=== PATIENT | female | born 1965 | race Hispanic/Latino ===

== ENCOUNTER 2017-11-20 09:30 | Day surgery (SDC) | payer OTHER ==
[~2017-11-20] VITALS: Ht 149.9 cm; Wt 85.7 kg
[~2017-11-20 09:30] MED LIST: SODIUM CHLORIDE 0.9% 1000ML 1,000 ML IV ONE
[2017-11-20 10:01] LABS: ALBUMIN 3.6 g/dL (3.5-5.0); BILIRUBIN,DIRECT 0.1 mg/dL (0.0-0.3); BILIRUBIN,TOTAL 0.8 mg/dL (0.2-1.0); TOTAL PROTEIN, SERUM 7.5 g/dL (6.0-8.3)
[2017-11-20 10:06] VITALS: BP 144/75
[2017-11-20] MEDS ORDERED: LISI1TAB11 PO (10:36)
[2017-11-20] MEDS ORDERED: EXCEES PO (10:36)
[2017-11-20] MEDS ORDERED: MULT-1203 PO (10:36)
[2017-11-20] MEDS ORDERED: PANT40TA25 PO (10:36)
[2017-11-20] MEDS ORDERED: PROPOFOL 10 MG/ML 20ML VIAL IV ONE ×2 (11:04)
[2017-11-20 11:17] VITALS: BP 99/52
== END 2017-11-20 12:15 ==
LOC: DAH 09:30
PROVIDERS: ATTEND Internal Medicine Gastroenterology
DX: K25.9 Gastric ulcer, unspecified as acute or chronic, without hemorrhage or perforation (principal); I10 Essential (primary) hypertension; Z82.49 Family history of ischemic heart disease and other diseases of the circulatory system; Z90.710 Acquired absence of both cervix and uterus; Z68.37 Body mass index [BMI] 37.0-37.9, adult; Z79.899 Other long term (current) drug therapy
CPT/HCPCS: 36415; 43239; 80076; 83690; 88305; 88312; 88342; A4606; J2704 ×2; J7030

== ENCOUNTER 2019-10-23 16:15 | Emergency (ER) | payer OTHER ==
[~2019-10-23 16:15] MED LIST changes: +LISI1TAB28 PO; +MULT-1203 PO; -SODIUM CHLORIDE 0.9% 1000ML 1,000 ML IV ONE
[2019-10-23] MEDS ORDERED: KETOROLAC TROMETHAMINE 60 MG/2 ML VIAL ONE (17:04)
[2019-10-23] MEDS ORDERED: DiphenhydrAMINE HCL 50 MG/ML VIAL ONE (17:04)
[2019-10-23] MEDS ORDERED: ONDANSETRON ODT 4 MG TAB ONE (17:04)
[2019-10-23 17:26] LABS: BASOPHILS % (AUTO) 0.6 % (0.0-5.0); EOSINOPHILS % (AUTO) 1.3 % (0.0-8.0); HEMATOCRIT 41.6 % (36-48); LYMPHOCYTES % (AUTO) 33.8 % (21.0-51.0); MEAN CORPUSCULAR HGB CONC 33.7 g/dL (32.0-36.0); MONOCYTES % (AUTO) 7.7 % (3.0-13.0); NEUTROPHILS % (AUTO) 56.3 % (40.0-77.0); PLATELET COUNT (AUTO) 168 K/uL (130-400); RED BLOOD CELL COUNT(AUTO) 4.38 MIL/uL (4.00-5.50); WHITE BLOOD COUNT (AUTO) 7.1 K/uL (4.8-10.8)
[2019-10-23 17:38] LABS: POTASSIUM 3.7 mmol/L (3.5-5.1)
[2019-10-23 17:51] LABS: APPEARANCE,URINE CLOUDY (CLEAR); BILIRUBIN,URINE NEGATIVE (NEGATIVE); COLOR,URINE YELLOW (YELLOW); GLUCOSE, URINE (UA) NEGATIVE (NEGATIVE); KETONES,URINE NEGATIVE (NEGATIVE); LEUKOCYTE ESTERASE ,URINE SMALL (NEGATIVE); NITRATE,URINE NEGATIVE (NEGATIVE); OCCULT BLOOD,URINE NEGATIVE (NEGATIVE); PH,URINE >=9.0 (5.0-8.0); PROTEIN,URINE 30 mg/dL (NEGATIVE); UROBILINOGEN,URINE 0.2 mg/dL (0.2-1.0)
[2019-10-23 18:54] LABS: BACTERIA,URINE Many /HPF (None Seen); MUCUS,URINE Few LPF (None Seen); SQUAMOUS EPITHELIAL CELL,UR Moderate /HPF (0-2)
== END 2019-10-23 18:29 | disposition home or self-care (01) ==
LOC: EDH 16:15
DX: R51 Headache (principal); I10 Essential (primary) hypertension; N39.0 Urinary tract infection, site not specified; Z98.890 Other specified postprocedural states; Z90.49 Acquired absence of other specified parts of digestive tract; Z90.710 Acquired absence of both cervix and uterus
CPT/HCPCS: 36415; 80048; 81001; 85025; 87804 ×2; 96372 ×2; 99284; J1200; J1885

== ENCOUNTER 2021-04-30 23:33 | Emergency (ER) | payer OTHER, SELFPAY ==
[~2021-04-30] VITALS: Ht 152.4 cm; Wt 88.5 kg
[~2021-04-30 23:33] MED LIST changes: -LISI1TAB28 PO; +LISI1TAB51 PO
[2021-05-01 04:57] VITALS: BP 173/85
[2021-05-01] MEDS ORDERED: BENZ-17 PO (05:00)
[2021-05-01] MEDS ORDERED: ONDA4TAB10 PO (05:00)
[2021-05-01] MEDS ORDERED: ALBU8.5H8 IH (05:00)
== END 2021-05-01 05:07 | disposition home or self-care (01) ==
LOC: EDH 23:33
DX: B34.9 Viral infection, unspecified (principal); R05 Cough; I10 Essential (primary) hypertension; Z20.822 Contact with and (suspected) exposure to COVID-19; Z98.890 Other specified postprocedural states; Z79.899 Other long term (current) drug therapy
CPT/HCPCS: 87635; 87804 ×2; 99283; C9803

== ENCOUNTER 2021-08-29 16:45 | Emergency (ER) | payer OTHER ==
[~2021-08-29] VITALS: Ht 152.4 cm; Wt 90.7 kg
[~2021-08-29 16:45] MED LIST changes: +ALBU8.5H8 IH; +BENZ-17 PO; +ONDA4TAB10 PO
[2021-08-29] MEDS ORDERED: IPRATROPIUM/ALBUTEROL SULFATE 3 ML SOLUTION IH STA (17:03)
[2021-08-29] MEDS ORDERED: SOLU-MEDROL 125MG VIAL IVP ONE (17:30)
[2021-08-29] MEDS ORDERED: IPRATROPIUM/ALBUTEROL SULFATE 3 ML SOLUTION IH ONE (18:00)
[2021-08-29] MEDS ORDERED: APAP/CODEINE 120/12MG 5ML PO ONE (18:00)
[2021-08-29] MEDS ORDERED: APAP/CODEINE 120/12MG 5ML ONE (18:11)
[2021-08-29] MEDS ORDERED: AZIT250T PO (19:05)
[2021-08-29] MEDS ORDERED: PRED20TA3 PO (19:05)
[2021-08-29] MEDS ORDERED: D-ME118S47 PO (19:05)
[2021-08-29 19:06] VITALS: BP 147/69
== END 2021-08-29 19:21 | disposition home or self-care (01) ==
LOC: EDH 16:45
DX: J40 Bronchitis, not specified as acute or chronic (principal); Z20.822 Contact with and (suspected) exposure to COVID-19; I10 Essential (primary) hypertension; Z79.52 Long term (current) use of systemic steroids; Z79.899 Other long term (current) drug therapy
CPT/HCPCS: 71045; 87635; 87804 ×2; 94640 ×2; 96374; 99285; C9803; J2930

== ENCOUNTER 2024-05-09 15:32 | Emergency (ER) | payer OTHER ==
[~2024-05-09] VITALS: Ht 152.4 cm; Wt 90.7 kg
[~2024-05-09 15:32] MED LIST changes: +AZIT250T PO; +BROM118S48 PO; +ONDA-243 PO; -ONDA4TAB10 PO; +PRED20TA3 PO
[2024-05-09 16:36] LABS: BASOPHILS # (AUTO) 0.02 K/uL (0.00-0.20); BASOPHILS % (AUTO) 0.3 % (0.0-5.0); EOSINOPHILS # (AUTO) 0.16 K/uL (0.00-0.70); EOSINOPHILS % (AUTO) 2.4 % (0.0-8.0); HEMATOCRIT 43.8 % (36-48); IMMATURE GRANULOCYTE ABSOLUTE 0.02 K/uL (0-1); LYMPHOCYTES # (AUTO) 2.3 K/uL (1.0-4.8); LYMPHOCYTES % (AUTO) 35.5 % (21.0-51.0); MEAN CORPUSCULAR HEMOGLOBIN 31.9 pg (27.0-33.0); MEAN CORPUSCULAR HGB CONC 33.3 g/dL (32.0-36.0); MEAN CORPUSCULAR VOLUME 95.6 fL (79-99); MONOCYTES # (AUTO) 0.5 K/uL (0.1-1.0); MONOCYTES % (AUTO) 8.2 % (3.0-13.0); NEUTROPHILS # (AUTO) 3.5 K/uL (1.8-7.7); NEUTROPHILS % (AUTO) 53.3 % (40.0-77.0); PLATELET COUNT (AUTO) 200 K/uL (130-400); RED BLOOD CELL COUNT(AUTO) 4.58 MIL/uL (4.00-5.50); WHITE BLOOD COUNT (AUTO) 6.6 K/uL (4.8-10.8)
[2024-05-09 16:53] LABS: CREATININE 0.6 mg/dL (0.5-1.0); POTASSIUM 4.1 mmol/L (3.5-5.1)
[2024-05-09] MEDS: KETOROLAC 30MG VIAL (30MG/ML) IM ONE (18:38)
[2024-05-09] MEDS: ORPHENADRINE 60MG/2ML IM ONE (18:39)
[2024-05-09] MEDS ORDERED: CYCL-309 PO (18:51)
[2024-05-09] MEDS ORDERED: KETO10TA2 PO (18:51)
[2024-05-09 18:53] VITALS: BP 148/84; PULSE 74; RESP 20; O2SAT 99
== END 2024-05-09 19:09 | disposition home or self-care (01) ==
LOC: EDH 15:32
DX: R07.89 Other chest pain (principal); I10 Essential (primary) hypertension; E78.00 Pure hypercholesterolemia, unspecified; Z79.899 Other long term (current) drug therapy; Z90.49 Acquired absence of other specified parts of digestive tract; Z90.710 Acquired absence of both cervix and uterus; Z98.890 Other specified postprocedural states
CPT/HCPCS: 99285; 71045; 84484; 80048; 85025; 36415; 96372 ×2; 93005; J1885; J2360

== ENCOUNTER 2024-12-28 14:06 | Emergency (ER) | payer BC, OTHER ==
[~2024-12-28] VITALS: Ht 152.4 cm; Wt 86.2 kg
[~2024-12-28 14:06] MED LIST changes: +CYCL-309 PO; +KETO10TA2 PO
--- NOTE | 2024-12-28 14:18 | ERN ---
ED Note History of Present Illness Stated Complaint: BACK PAIN Chief Complaint: Back Pain-No Injury Time Seen by MD: 14:11 Dictation: PATIENT IS A 59-YEAR-OLD FEMALE COMING IN TODAY WITH COMPLAINTS OF ONSET OF LOWER LUMBAR PAIN NONRADIATING FOR THE LAST THREE DAYS. SHE DENIES ANY HEAVY LIFTING TWISTING. STATES SHE HAS A HISTORY OF A PRIOR HERNIATED DISC AND HAD SURGERY DONE BY A SURGEON IN [facility] THREE YEARS AGO. NO CHANGE IN BOWEL OR BLADDER FUNCTION SHE HAS BEEN TAKEN TYLENOL ARTHRITIS [id number] FOR PAIN. NO FEVER NO CHILLS NO URINARY SYMPTOMS Allergies: Coded Allergies: No Known Drug Allergies (Unverified Allergy, Unknown, 11/20/17) Home Meds Active Scripts Cyclobenzaprine HCl (Cyclobenzaprine HCl) 10 Mg Tablet, 10 MG PO DAILYDINNER for 5 Days, #5 TAB Prov:BRENNAN RIVERA 05/09/24 Ketorolac Tromethamine (Ketorolac Tromethamine) 10 Mg Tablet, 10 MG PO BID for 5 Days, #10 TAB Prov:BRENNAN RIVERA 05/09/24 D-Methorphan Hb/P-Epd HCl/Bpm (Bromfed Dm Cough Syrup) 118 Ml Syrup, 7.5 ML PO TID for cough for 5 Days, #80 ML Prov:NYA CAMPBELL NP 08/29/21 Prednisone (Prednisone) 20 Mg Tablet, 1 TAB PO DAILY for Bronchitis for 6 Days, #6 TAB 0 Refills TAKE 1 TAB BY MOUTH THREE TIMES PER DAY X3 DAYS, THEN TAKE 1 TAB BY MOUTH TWICE A DAY X2 DAYS, THEN TAKE 1 TAB BY MOUTH ONCE A DAY X1 DAY. Prov:NYA CAMPBELL NP 08/29/21 Azithromycin (Zithromax) 250 Mg Tablet, 250 MG PO DAILY for Bronchitis for 5 Days, #6 TAB Prov:NYA CAMPBELL NP 08/29/21 Ondansetron (Ondansetron Odt) 4 Mg Tab.rapdis, 4 MG PO Q6HPRN, #20 TAB 0 Refills Prov:REBECA CHRISTIE MD 05/01/21 Albuterol Sulfate (Proair Hfa) 8.5 Gm Hfa.aer.ad, 2 PUFF IH Q4HPRN, #1 INHALER 0 Refills Prov:REBECA CHRISTIE MD 05/01/21 Benzonatate (Tessalon Perle) 100 Mg Capsule, 100 MG PO TIDP, #15 CAP 0 Refills Prov:SHAHNAZREBECA MD 05/01/21 Reported Medications Multivitamin (Multi Vitamin Daily) 1 Each Tablet, 1 EACH PO DAILY, TAB 11/20/17 Lisinopril/Hydrochlorothiazide (Lisinopril-Hctz 20-12.5 mg Tab) 1 Each Tablet, 1 EACH PO DAILY, TAB 11/20/17 Past Medical History Past Medical History: High Cholesterol, Hypertension, Hyperthyroid Surgical History: Hysterectomy, Surgical History Other: LEFT FOOT Family History: Negative Social History: Lives with family History: Not Applicable RN Note Reviewed/Agreed w/PFSH: Yes Review of System Dictation CONSTITUTIONAL: NEGATIVE EXCEPT FOR HPI HEAD/FACE: NEGATIVE EXCEPT FOR HPI EENT: NEGATIVE EXCEPT FOR HPI RESPIRATORY: NEGATIVE EXCEPT FOR HPI GASTROINTESTINAL/ABDOMINAL: NEGATIVE EXCEPT FOR HPI GENITOURINARY: NEGATIVE EXCEPT FOR HPI MUSCULOSKELETAL: NEGATIVE EXCEPT FOR HPI DIFFUSE LUMBOSACRAL TENDERNESS INTEGUMENTARY: NEGATIVE EXCEPT FOR HPI NEUROLOGICAL/PSYCH: NEGATIVE EXCEPT FOR HPI HEMATOLOGIC/LYMPHATIC: NEGATIVE EXCEPT FOR HPI ALL SYSTEMS NEGATIVE, EXCEPT NOTED ABOVE. 13 POINT REVIEW OF SYSTEMS ASSESSED AND ALL NEGATIVE EXCEPT FOR ABOVE. Initial Vital Sign VS Vital Signs Date Time Temp Pulse Resp B/P (MAP) Pulse Ox O2 Delivery O2 Flow Rate FiO2 12/28/24 14:07 98.2 96 14 180/91 98 0 12/28/24 18:54 Room Air* 21 Physical Exam Dictation VITAL SIGNS REVIEWED GENERAL APPEARANCE: ALERT, ORIENTED X 3, MODERATE ACUTE DISTRESS, WELL DEVELOPED, NOURISHED. OBESE HEAD AND FACE: NON-TRAUMATIC. EYES: PERRL, PINK CONJUNCTIVAS, EYELID NO TRAUMA, ANTERIOR CHAMBER WITH ARCUS SENILIS. EARS: PINNAS INTACT AND NO SIGNS OF TRAUMA OR ERYTHEMA EAR CANALS CLEAR AND NO DISCHARGE TM NO ERYTHEMA NOSE: NO DISCHARGE, NO BLEEDING. OROPHARYNX: MOUTH NORMAL, TONGUE PINK, PHARYNX CLEAR,NO ERYTHEMA, TONSILS NO EXUDATES, NO ABSCESSES NOTED, MUCOUS MEMBRANE MOIST NECK: SUPPLE, NON-TENDER, NO THYROMEGALY, NO MASSES, NO JVD, NO BRUITS BREAST:DEFERRED CHEST:NO TENDERNESS, NO CREPITUS, NO PARADOXICAL MOVEMENT, NO RETRACTIONS LUNGS:CLEAR, WELL-VENTILATED, SYMMETRIC, NO RALES, NO WHEEZING, NO RHONCHI, NO STRIDOR, GOOD BREATH SOUNDS BILATERALLY HEART: REGULAR RATE, REGULAR RHYTHM, NO MURMUR, NO GALLOPS VASCULAR: NO PERIPHERAL EDEMA, ABDOMEN: SOFT, POSITIVE BOWEL SOUNDS, NONDISTENDED, NO GUARDING, NONTENDER, NO REBOUND, NO MASSES NO HEPATOMEGALY, NO SPLENOMEGALY, NO PATEL'S SIGN, NO HERNIAS. RECTAL: DEFERRED GENITAL: DEFERRED NEUROLOGICAL: NORMAL SPEECH, MOTOR FUNCTION INTACT, SENSORY FUNCTION INTACT MUSCULOSKELETAL: NECK NONTENDER, FULL RANGE OF MOTION, DIFFUSE LUMBOSACRAL TENDERNESS. NO MIDLINE SPINE PAIN OR STEP-OFFS. NEGATIVE STRAIGHT LEG RAISE BILATERALLY 10. EXTREMITIES: NONTENDER, FULL RANGE OF MOTION SKIN: COLOR PINK, DRY, NO TURGOR, NO RASH, NO LACERATIONS, NO ABRASIONS, NO CONTUSIONS. LYMPHATIC: DEFERRED Results (Laboratory/Radiology) Labs Reviewed?: Yes ED Course ED Course Orders Procedure Category Date Status Time Dexamethasone 4mg/Ml PHA 12/28/24 Complete 1ml Vial (Dexametha 14:30 Cyclobenzaprine Hcl PHA 12/28/24 Complete (Cyclobenzaprine Hcl 14:30 Ketorolac 60mg/2ml PHA 12/28/24 Complete (Toradol 60mg/2ml) 14:30 Hydrocodone/Apap PHA 12/28/24 Complete 5/325 ([place] 5/325mg) 19:30 Cyclobenzaprine Hcl PHA 12/28/24 Complete (Cyclobenzaprine Hcl 19:16 Ketorolac 60mg/2ml PHA 12/28/24 Complete (Toradol 60mg/2ml) 19:16 Dexamethasone 4mg/Ml PHA 12/28/24 Complete 1ml Vial (Dexametha 19:17 Current Medications Medications (Trade) Dose Ordered Sig/Tone Route PRN Reason Start Time Stop Time Status Last Admin Dose Admin Acetaminophen/ Hydrocodone Bitart (NORco 5/325MG) 1 tab ONCE ONCE PO 12/28/24 19:30 12/28/24 19:31 DC 12/28/24 19:20 Cyclobenzaprine HCl (Cyclobenzaprine HCl) 10 mg ONCE ONCE PO 12/28/24 14:30 12/28/24 14:31 DC 12/28/24 19:20 Cyclobenzaprine HCl (Cyclobenzaprine HCl) 10 mg STK-MED ONCE .ROUTE 12/28/24 19:16 12/28/24 19:17 DC Dexamethasone Sodium Phosphate (dexaMETHasone 4MG/ML 1ML VIAL) 4 mg STK-MED ONCE .ROUTE 12/28/24 19:17 12/28/24 19:17 DC Dexamethasone Sodium Phosphate (dexaMETHasone 4MG/ML 1ML VIAL) 8 mg ONCE ONCE IM 12/28/24 14:30 12/28/24 14:31 DC 12/28/24 19:21 Ketorolac Tromethamine (toRADol 60MG/ 2ML) 60 mg ONCE ONCE IM 12/28/24 14:30 12/28/24 14:31 DC 12/28/24 19:21 Ketorolac Tromethamine (toRADol 60MG/ 2ML) 60 mg STK-MED ONCE IM 12/28/24 19:16 12/28/24 19:17 DC Vital Signs Date Time Temp Pulse Resp B/P (MAP) Pulse Ox O2 Delivery O2 Flow Rate FiO2 12/28/24 18:54 98.2 96 19 180/91 98 Room Air* 0 21 12/28/24 14:07 98.2 96 14 180/91 98 0 1930/PATIENT STATES PAIN IS MARKEDLY IMPROVED AFTER TREATMENT. DISCHARGED HOME WITH THE HAS A DESIGNATED EMAIL MANAGER. TOLD TO SEE YOUR PRIMARY CARE DOCTOR MONDAY OR MONDAY FOR FOLLOW UP AND MANAGEMENT. Medical Decision Making MDM MEDICAL DISCHARGE MAKING BASED ON EMPIRIC TREATMENT FOR ACUTE LUMBAR PAIN. NO CHANGE IN BOWEL OR BLADDER FUNCTION NO SADDLE PARESTHESIA PATIENT HAS A HISTORY OF BACK PAIN WITH SURGERIES. DX & DISP Disposition: Discharge Departure Impression: Primary Impression: Acute exacerbation of chronic low back pain Additional Impression: Benign hypertension Condition: Stable Scripts Omeprazole (Omeprazole) 40 Mg Capsule.dr 1 CAP PO DAILY for 30 Days, #30 CAP 0 Refills Prov: AJAY JAIN NP 12/28/24 Prednisone (Prednisone) 20 Mg Tablet 1 TAB PO AD for 6 Days, #14 TAB 0 Refills TAKE 1 TAB BY MOUTH THREE TIMES PER DAY X3 DAYS, THEN TAKE 1 TAB BY MOUTH TWICE A DAY X2 DAYS, THEN TAKE 1 TAB BY MOUTH ONCE A DAY X1 DAY. TAKE WITH FOOD Prov: AJAY JAIN NP 12/28/24 Ibuprofen (Ibuprofen 800 mg Tab) 800 Mg Tab 800 MG PO Q8H PRN for fever or pain, #30 TAB 0 Refills Prov: AJAY JAIN NP 12/28/24 Cyclobenzaprine HCl (Cyclobenzaprine HCl) 10 Mg Tablet 1 TAB PO TID for muscle spasms for 10 Days, #30 TAB 0 Refills Prov: AJAY JAIN NP 12/28/24 Additional Instructions: FOLLOW-UP WITH PRIMARY CARE PROVIDER IN 1 TO 2 DAYS. TAKE MEDICATIONS DIRECTED HERE IN THE EMERGENCY ROOM. OKAY TO CONTINUE HOME MEDICATIONS UNLESS OTHERWISE DISCUSSED DURING YOUR VISIT IN THE EMERGENCY ROOM TODAY. RETURN TO YOUR NEAREST EMERGENCY ROOM IF SYMPTOMS WORSEN OR IF THERE IS NO IMPROVEMENT. CALL 911 IF YOU NEED IMMEDIATE ASSISTANCE. TAKE TYLENOL OR MOTRIN [id number] NEEDED AND IF NO CONTRAINDICATIONS ARE PRESENT. INCREASE ORAL HYDRATION. A WOUND CULTURE OR URINE CULTURE WAS ORDERED HERE IN THE EMERGENCY ROOM DEPARTMENT PLEASE FOLLOW-UP WITH PRIMARY CARE PROVIDER AND ADVISE THEM TO GET REPEAT PORTS FROM OUR FACILITY. IF YOU HAD ANY JUDITH WRAP/SPLINTS THAT WERE APPLIED HERE, PLEASE DO NOT REMOVE THEM UNTIL YOU SEE YOUR PRIMARY CARE OR SPECIALTY. TAKE IBUPROFEN AND FLEXERIL EVERY 8 HOURS WITH FOOD FOR THE NEXT TWO DAYS. TAKE PREDNISONE DIRECTED WITH FOOD UNTIL GONE. NO LIFTING GREATER THAN 10 LB AND SEE YOUR PRIMARY CARE DOCTOR FOR FOLLOW UP IN 1-2 DAYS FOR MANAGEMENT Referrals: NONE (PCP) Time of Disposition: 19:33 I have reviewed the case, and I agree with, Diagnosis and Plan AJAY JAIN NP Dec 28, 2024 14:18
[2024-12-28 18:54] VITALS: TEMP 98.3
[2024-12-28] MEDS: CYCLOBENZAPRINE HCL 10 MG TABLET ONE (19:20)
[2024-12-28] MEDS: HYDROcodone/APAP 5/325 1 TAB TABLET PO ONE (19:20)
[2024-12-28] MEDS: CYCLOBENZAPRINE HCL 10 MG TABLET PO ONE (19:20)
[2024-12-28] MEDS: dexaMETHasone SOD PHOSPHATE 4 MG/ML 1ML VIAL IM ONE (19:21)
[2024-12-28] MEDS: dexaMETHasone SOD PHOSPHATE 4 MG/ML 1ML VIAL ONE (19:21)
[2024-12-28] MEDS: ketOROlac 60 MG VIAL (30MG/ML) IM ONE ×2 (19:21)
[2024-12-28] MEDS ORDERED: PRED20TA3 PO (19:34)
[2024-12-28] MEDS ORDERED: IBUP-2077 PO (19:34)
[2024-12-28] MEDS ORDERED: CYCL-309 PO (19:34)
[2024-12-28] MEDS ORDERED: OMEP40CA21 PO (19:34)
[2024-12-28 19:57] VITALS: BP 168/83; PULSE 79; RESP 18; O2SAT 100
== END 2024-12-28 20:07 | disposition home or self-care (01) ==
LOC: EDH 14:06
DX: G89.29 Other chronic pain (principal); M54.50 Low back pain, unspecified; I10 Essential (primary) hypertension; E78.00 Pure hypercholesterolemia, unspecified; Z79.52 Long term (current) use of systemic steroids; Z79.899 Other long term (current) drug therapy; Z90.710 Acquired absence of both cervix and uterus
CPT/HCPCS: 99284; 96372 ×2; J1100; J1885

== ENCOUNTER 2025-06-17 17:05 | Inpatient (IN) | payer BC ==
[~2025-06-17] VITALS: Ht 152.4 cm; Wt 95.3 kg
[~2025-06-17 17:05] MED LIST changes: +IBUP-2077 PO; +OMEP40CA21 PO
--- NOTE | 2025-06-17 17:23 | ERN ---
General Chief Complaint: Chest Pain Stated Complaint: CP Time Seen by MD: 17:14 Source: patient History of Present Illness Initial Comments Patient is a 59-year-old female coming in complaining of chest pain. Patient states that the chest pain began earlier in the morning. Per patient she also has a history of asthma. She quantifies the pain at 5/10 when present. Allergies: Coded Allergies: No Known Drug Allergies (Unverified Allergy, Unknown, 11/20/17) Home Meds Active Scripts Omeprazole (Omeprazole) 40 Mg Capsule.dr, 1 CAP PO DAILY for 30 Days, #30 CAP 0 Refills Prov:AJAY JAIN NP 12/28/24 Prednisone (Prednisone) 20 Mg Tablet, 1 TAB PO AD for 6 Days, #14 TAB 0 Refills TAKE 1 TAB BY MOUTH THREE TIMES PER DAY X3 DAYS, THEN TAKE 1 TAB BY MOUTH TWICE A DAY X2 DAYS, THEN TAKE 1 TAB BY MOUTH ONCE A DAY X1 DAY. TAKE WITH FOOD Prov:AJAY JAIN NP 12/28/24 Ibuprofen (Ibuprofen 800 mg Tab) 800 Mg Tab, 800 MG PO Q8H PRN for fever or pain, #30 TAB 0 Refills Prov:AJAY JAIN NP 12/28/24 Cyclobenzaprine HCl (Cyclobenzaprine HCl) 10 Mg Tablet, 1 TAB PO TID for muscle spasms for 10 Days, #30 TAB 0 Refills Prov:AJAY JAIN NP 12/28/24 Cyclobenzaprine HCl (Cyclobenzaprine HCl) 10 Mg Tablet, 10 MG PO DAILYDINNER for 5 Days, #5 TAB Prov:BRENNAN RIVERA 05/09/24 Ketorolac Tromethamine (Ketorolac Tromethamine) 10 Mg Tablet, 10 MG PO BID for 5 Days, #10 TAB Prov:BRENNAN RIVERA 05/09/24 D-Methorphan Hb/P-Epd HCl/Bpm (Bromfed Dm Cough Syrup) 118 Ml Syrup, 7.5 ML PO TID for cough for 5 Days, #80 ML Prov:NYA CAMPBELL NP 08/29/21 Prednisone (Prednisone) 20 Mg Tablet, 1 TAB PO DAILY for Bronchitis for 6 Days, #6 TAB 0 Refills TAKE 1 TAB BY MOUTH THREE TIMES PER DAY X3 DAYS, THEN TAKE 1 TAB BY MOUTH TWICE A DAY X2 DAYS, THEN TAKE 1 TAB BY MOUTH ONCE A DAY X1 DAY. Prov:NYA CAMPBELL PHONE CIRCUIT OPERATOR 08/29/21 Azithromycin (Zithromax) 250 Mg Tablet, 250 MG PO DAILY for Bronchitis for 5 Days, #6 TAB Prov:NYA CAMPBELL NP 08/29/21 Ondansetron (Ondansetron Odt) 4 Mg Tab.rapdis, 4 MG PO Q6HPRN, #20 TAB 0 Refills Prov:REBECA CHRISTIE MD 05/01/21 Albuterol Sulfate (Proair Hfa) 8.5 Gm Hfa.aer.ad, 2 PUFF IH Q4HPRN, #1 INHALER 0 Refills Prov:REBECA CHRISTIE MD 05/01/21 Benzonatate (Tessalon Perle) 100 Mg Capsule, 100 MG PO TIDP, #15 CAP 0 Refills Prov:REBECA CHRISTIE MD 05/01/21 Reported Medications Multivitamin (Multi Vitamin Daily) 1 Each Tablet, 1 EACH PO DAILY, TAB 11/20/17 Lisinopril/Hydrochlorothiazide (Lisinopril-Hctz 20-12.5 mg Tab) 1 Each Tablet, 1 EACH PO DAILY, TAB 11/20/17 Past Medical History Past Medical History: High Cholesterol, Hypertension, Hyperthyroid Past Surgical History: Hysterectomy, Surgical History Other: LEFT FOOT Family History Family History: Negative Social History Social History: Lives with family Female( History) History: Not Applicable ROS Dictation CONSTITUTIONAL: No chills, no fever, no weakness, no diaphoresis, no malaise. HEAD/FACE: No signs of trauma. EENT: No eye pain, no blurred vision, no tearing, no double vision, no ear pain, no ear discharge, no nose pain, no nasal congestion, no throat pain, no throat swelling, no mouth pain. RESPIRATORY: No cough, no orthopnea, no SOB, no stridor, no wheezing. CARDIOVASCULAR: chest pain, no edema, no palpitations, no syncope. GASTROINTESTINAL/ABDOMINAL: No abdominal pain, no constipation, no diarrhea, no nausea, no vomiting. GENITOURINARY: No abnormal discharge, no dysuria, no frequent urination, no hematuria. No complaints of pain in the genitals. MUSCULOSKELETAL: No back pain, no gout, no joint pain, no joint swelling, no muscle pain, no muscle stiffness, no neck pain. INTEGUMENTARY: No change in color, no change in hair/nails, no dryness, no lesion, no lumps, no rash. NEUROLOGICAL/PSYCH: No anxiety, not depressed, no emotional problem, no headache, no numbness, no pre-existing deficit, no history of seizures, no tremors, no weakness. HEMATOLOGIC/LYMPHATIC: Not anemic, no history of blood clots, no apparent bleeding, no bruising, glands not swollen. All Systems Negative, Except as Noted. Physical Exam Physical Exam Dictation VITAL SIGNS: Reviewed. GENERAL APPEARANCE: Alert, oriented x3, no acute distress, obese. HEAD AND FACE: Non-traumatic. EYES: PERRL, pink conjunctivas, eyelid no trauma, anterior chamber clear. EARS: Pinnas intact and no signs of trauma or erythema. Ear canals clear and no discharge. TMs no erythema. NOSE: No discharge, no bleeding. OROPHARYNX: Mouth normal, teeth no caries, tongue pink. Pharynx clear, no erythema. Tonsils no exudates, no abscesses noted. Mucous membrane moist. NECK: Supple, non-tender, no thyromegaly, no masses, no JVD, no bruits. BREAST: Deferred. CHEST: No tenderness, no crepitus, no paradoxical movement, no retractions. LUNGS: Clear, well-ventilated, symmetric, no rales, no wheezing, no rhonchi, no stridor, good breath sounds bilaterally. HEART: Regular rate, regular rhythm, no murmur, no gallops. VASCULAR: No peripheral edema. ABDOMEN: Soft, positive bowel sounds, nondistended, no guarding, nontender, no rebound, no masses no hepatomegaly, no splenomegaly, no Medina's sign, no hernias. RECTAL: Deferred. GENITAL: Deferred. NEUROLOGICAL: Normal speech, gross motor function intact, gross sensory function intact. MUSCULOSKELETAL: Neck nontender, full range of motion, back nontender, full range of motion. EXTREMITIES: Nontender, full range of motion. SKIN: Color pink, dry, no turgor, no rash, no lacerations, no abrasions, no contusions. LYMPHATICS: Deferred. Results Laboratory and Microbiology Lab and Micro Result Laboratory Tests Test 06/17/25 17:49 06/17/25 18:24 06/17/25 18:50 White Blood Count 6.5 K/uL (4.8-10.8) Red Blood Count 3.90 MIL/uL (4.00-5.50) L Hemoglobin 12.2 g/dL (12.0-16.0) Hematocrit 37.8 % (36-48) Mean Corpuscular Volume 96.9 fL (79-99) Mean Corpuscular Hemoglobin 31.3 pg (27.0-33.0) Mean Corpuscular Hemoglobin Concent 32.3 g/dL (32.0-36.0) Red Cell Distribution Width 13.2 % (11.0-15.5) Platelet Count 157 K/uL (130-400) Mean Platelet Volume 11.3 fL (7.5-10.5) H Immature Granulocyte % (Auto) 0.3 % (0-1) Neutrophils (%) (Auto) 57.9 % (40.0-77.0) Lymphocytes (%) (Auto) 29.3 % (21.0-51.0) Monocytes (%) (Auto) 8.7 % (3.0-13.0) Eosinophils (%) (Auto) 3.3 % (0.0-8.0) Basophils (%) (Auto) 0.5 % (0.0-5.0) Neutrophils # (Auto) 3.7 K/uL (1.8-7.7) Lymphocytes # (Auto) 1.9 K/uL (1.0-4.8) Monocytes # (Auto) 0.6 K/uL (0.1-1.0) Eosinophils # (Auto) 0.21 K/uL (0.00-0.70) Basophils # (Auto) 0.03 K/uL (0.00-0.20) Absolute Immature Granulocyte (auto 0.02 K/uL (0-1) Nucleated Red Blood Cells 0.0 % (0.0-0.19) Sodium Level 138 mmol/L (136-145) Potassium Level 4.0 mmol/L (3.5-5.1) Chloride Level 104 mmol/L (101-111) Carbon Dioxide Level 27 mmol/L (21-32) Blood Urea Nitrogen 22 mg/dL (7-18) H Creatinine 0.7 mg/dL (0.5-1.0) Glomerular Filtration Rate Calc 98 mL/min (>90) Random Glucose 104 mg/dL (70-105) Total Calcium 8.9 mg/dL (8.5-10.1) Magnesium Level 1.90 mg/dL (1.80-2.40) Troponin I High Sensitivity 21 ng/L (4-50) 21 ng/L (4-50) Urine Color LIGHT-YELLOW (YELLOW) Urine Appearance CLEAR (CLEAR) Urine pH 6.5 (5.0-8.0) Urine Specific [place] 1.010 (1.001-1.031) Urine Protein NEGATIVE mg/dL (NEGATIVE) Urine Glucose (UA) NEGATIVE mg/dL (NEGATIVE) Urine Ketones NEGATIVE mg/dL (NEGATIVE) Urine Occult Blood NEGATIVE (NEGATIVE) Urine Nitrate NEGATIVE (NEGATIVE) Urine Bilirubin NEGATIVE mg/dL (NEGATIVE) Urine Urobilinogen 0.2 mg/dL (0.2-1.0) Urine Leukocyte Esterase NEGATIVE David/uL Labs Reviewed?: Yes EKG/XRAY/US/CT/MRI EKG Comment 06/17/2025 time 5:14 p.m. Ventricular rate [address] wave elevation or depression Repeat 12 lead EKG done on 06/17/2025 at 8:13 p.m. showed a heart rate of 77, MD interval 136, QRS 81, QT/QTC 381/433. Impression normal sinus rhythm with no acute STT wave changes. EKG rhythm strip shows a normal sinus rhythm with no acute STT wave changes. EKG interpreted by ER MD Dr. Okeefe X-RAY Comment REASON: ORDERING PHYSICIAN: NIC LANGLEY MD PROCEDURE: CXR1VW - CHEST 1VW EXAM: CR Chest, 1 View. CLINICAL HISTORY: COMPARISON: 05/09/2024 FINDINGS: LUNGS: There is no mass, infiltrate, or acute pulmonary abnormality. PLEURAL SPACES: No evidence of pleural effusion or pneumothorax. MEDIASTINUM: Cardiac size and mediastinal contours within normal limits. BONES: No acute osseous abnormality. IMPRESSION: No acute cardiopulmonary pathology is evident. /[place] DICTATED BY: ESTRELLITA TEMPLE MD DATE: 06/17/252056 ELECTRONICALLY SIGNED BY: ESTRELLITA TEMPLE MD DATE: 06/17/252056 [facility] Differential diagnosis-unstable angina, esophagitis, hiatal hernia, gastritis, musculoskeletal pain, pleuritic chest pain This is a 59-year-old morbidly obese female with known history of hypertension and diabetes mellitus presented to the emergency room stating that she has been experiencing midsternal chest pain with radiation to the neck and jaw starting early this morning. Apparently around 630 when she woke up she had a discomfort and she ate breakfast and also took some [place] with some improvement. She went to work and the pain recurred. By around 3 the pain was worse and hence she came into the ER for further evaluation. No diaphoresis no nausea vomitings. Location of the chest pain is mostly in the midsternal area. She denied any radiation to the arm. She works in the [employer] and apparently tried to move around and started mopping etcetera She denied any heartburn or indigestion. She denied any wheezing but she does give a history of asthma. Temperature 98.3 pulse 74 respirations 18 blood pressure 160/94 with a pulse oximetry of 98% on room air Her chronic medical problems include diabetes mellitus type 2 and hypertension. Asthma Patient is not a smoker General: awake, alert, NAD Head/Face: Normocephalic, atraumatic Eyes: PERRL, EOMI, vision at baseline ENT: oral cavity clear, TMs clear, no signs of infection Neck: Trachea midline, supple, no nuchal rigidity Cardiovascular: RRR, normal S1/S2, No MRGs, no JVD Respiratory: CTAB, no respiratory distress, No rales or wheezes Abdomen: Soft, non-tender, non-distended, normal bowel sounds, no guarding or rebound. Skin: Warm, dry, normal turgor, no rash MS/Extremity: Pulses equal, no cyanosis, neurovascular intact, FROM Neuro: COAx4, GCS 15, strength 5/5, CN 2-12 intact, normal cerebellar exam, normal gait, Psych: Normal behavior, mood, and affect normal Extremities-trace edema without any palpable cords, Homans sign is negative Labs reviewed CBC is with a normal limits BNP 7 showed a BUN of 22 otherwise rest of the labs are within normal limits. Urinalysis is unremarkable troponins 1st and 2nd set are 21 and 21. Twelve lead EKG shows a normal sinus rhythm with no acute STT wave changes or de ep ST depressions. Chest x-ray is unremarkable for any acute infiltrate or pneumothorax. I had a long discussion with the patient and her family member that this maybe related to hiatal hernia which is not uncommon with morbid obesity and lacks abdominal wall and reassured her that at this time it seems less likely to be cardiac, however she could follow up with the primary care physician to get an outpatient stress test. When I reassessed her after the pain medicine and GI cocktail at 8:42 p.m., patient stated that she still having severe pain appears extremely anxious and holding her chest. At this point I recommended that she should be admitted to the hospital to further evaluate this persistent chest pain Rationale: Tests considered and ordered secondary to shared decision making include: Previous outside records reviewed: Old ER visits. Risk of complication and/or morbidity or mortality of patient management: None Medications-Per medication reconciliation Need for hospitalization: Patient does not meet criteria for hospitalization. Need for emergency major/minor surgery: No There are no social concerns with this patient. Prescription drug management Prescriptions will include symptomatic care Patient's prior external medical records from other ER visits were reviewed by me as indicated. Prior testing and results from previous visits were reviewed. Prior tests were taken into account with medical decision making and resource utilization, independent historian/historians were used to obtain complete medical history. I independently interpreted the test that were performed, results were reviewed by me and considered findings on radiology if ordered. Medical management and examination interpretation discussions were had by me with other qualified healthcare professionals as indicated for the patient's care. ED Course Orders Procedure Category Date Status Time Cbc With Differential LAB 06/17/25 Complete 17:18 Chest 1vw RAD 06/17/25 Resulted 17:18 12 Lead Ekg Tracing- EKG 06/17/25 Complete Technical 17:18 Magnesium LAB 06/17/25 Complete 17:18 Troponin I High LAB 06/17/25 Complete Sensitivity 17:18 Urinalysis Profile LAB 06/17/25 Complete 17:18 Basic Metabolic Panel LAB 06/17/25 Complete 17:18 Troponin I High LAB 06/17/25 Complete Sensitivity 18:40 Ipratropium/Albuterol PHA 06/17/25 Complete Neb (Duoneb) 19:00 Methylprednisolone PHA 06/17/25 Complete Succ 125mg (Solu-Medr 19:00 12 Lead Ekg Tracing- EKG 06/17/25 Complete Technical 19:43 Morphine 4mg Syg PHA 06/17/25 Complete (Morphine 4mg Syg) 20:00 Lidocaine Hcl 2% PHA 06/17/25 Complete Viscous (Lidocaine Hcl 20:00 Mag/Alum/Simeth 30ml PHA 06/17/25 Complete (Maalox Plus 30ml) 20:00 Dicyclomine Hcl PHA 06/17/25 Complete (Bentyl 10mg/5ml 20:00 Ct Chest Pe Protocol CT 06/17/25 Logged Wwo Cont 20:50 Admit Orders ADM 06/17/25 Transmitted 20:58 Edm Admit Bridge Order ADM 06/17/25 Verified 21:00 Current Medications Medications (Trade) Dose Ordered Sig/Tone Route PRN Reason Start Time Stop Time Status Last Admin Dose Admin Al Hydroxide/Mg Hydroxide (MAALox PLUS 30ML) 30 ml ONCE ONCE PO 06/17/25 20:00 06/17/25 20:01 DC 06/17/25 20:00 Albuterol (DUOneb) 2 udvial ONCE ONCE IH 06/17/25 19:00 06/17/25 19:01 DC 06/17/25 19:59 Dicyclomine HCl (Bentyl 10mg/5ml Syrup) 10 mg ONCE ONCE PO 06/17/25 20:00 06/17/25 20:01 DC 06/17/25 20:00 Lidocaine HCl (Lidocaine HCl 2% Viscous) 10 ml ONCE ONCE PO 06/17/25 20:00 06/17/25 20:01 DC 06/17/25 20:00 Methylprednisolone Sodium Succinate (Solu-medROL 125MG) 125 mg ONCE ONCE IVP 06/17/25 19:00 06/17/25 19:01 DC 06/17/25 19:21 Morphine Sulfate (morPHINE 4MG SYG) 4 mg ONCE ONCE IVP 06/17/25 20:00 06/17/25 20:01 DC 06/17/25 20:00 Vital Signs Date Time Temp Pulse Resp B/P (MAP) Pulse Ox O2 Delivery O2 Flow Rate FiO2 06/17/25 20:00 69 18 06/17/25 19:24 97.3 71 18 167/65 98 Room Air* 0 21 06/17/25 18:31 97.3 71 18 167/65 97 Room Air* 0 21 06/17/25 17:47 98.2 74 18 160/94 98 Room Air 0 I repeated the 12 lead EKG which looks exactly the same as the previous 1 with a normal sinus rhythm with no acute STT wave changes noted. Trial of GI cocktail and pain medication and reassess the response 8:30 p.m. patient appears still uncomfortable and continues to complain about the midsternal chest pain stating that the pain is still quite severe. I tried to reassure her that her heart score is very very low and it is a very atypical presentation for her chest pain to last for hours and hours. We will request CT scan of the chest with a PE protocol and recommended admission to the hospital for further evaluation 8:50 p.m. patient accepted by Colt Prado mid-level provider for [facility]ist group for admission and further management HEART Score Response (Comments) Value History: Low suspicion (0) 0 EKG: Normal 0 Age: 45-65yrs (+1) 1 Risk Factors: 1-2 risk factors (+1) 1 Initial Troponin: Normal limit (0) 0 HEART Score Risk: Low Risk for MACE (1-3) Total 2 DX & DISP Disposition: Inpatient Decision to Admit Time: 20:41 Departure Impression: Primary Impression: Hiatal hernia Additional Impressions: Unstable angina, Hypertension, uncontrolled, Diabetes mellitus, Morbid obesity Ruled Out: Non-cardiac chest pain Condition: Stable Additional Instructions: Patient was informed of all the diagnostic labs and procedures conducted in the emergency room today and demonstrated understanding of the results. I personally reviewed and interpreted all the diagnostic exams performed in the ER today. The patient will be admitted to the hospital for further treatment and evaluation. Disposition-admit to facility Condition-stable/guarded Course-uncertain at this time Pain status-decreased Assessment-exam unchanged Admission Certification- I certify that the patients status is appropriate and is based on my best clinical judgment and the patient's condition as documented in the medical records Referrals: SELF,REFERRAL (PCP) NIC LANGLEY MD Jun 17, 2025 17:23 RG OKEEFE MD Jun 17, 2025 20:14
[2025-06-17 18:10] LABS: IMMATURE GRANULOCYTE ABSOLUTE 0.02 K/uL (0-1); NUCLEATED RED BLOOD CELLS 0.0 % (0.0-0.19); PLATELET COUNT (AUTO) 157 K/uL (130-400); RED BLOOD CELL COUNT(AUTO) 3.90 MIL/uL (4.00-5.50); RED CELL DISTRIBUTION WIDTH 13.2 % (11.0-15.5); WHITE BLOOD COUNT (AUTO) 6.5 K/uL (4.8-10.8)
[2025-06-17 18:19] LABS: CREATININE 0.7 mg/dL (0.5-1.0); GLOMERULAR FILTR. RATE CALC 98.0 mL/min (>90); GLUCOSE,RANDOM 104.0 mg/dL (70-105); SODIUM SERUM 138.0 mmol/L (136-145); UREA NITROGEN, BLOOD 22.0 mg/dL (7-18)
--- NOTE | 2025-06-17 18:22 | EKG ---
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
[2025-06-17 18:33] LABS: APPEARANCE,URINE CLEAR (CLEAR); GLUCOSE, URINE (UA) NEGATIVE (NEGATIVE); LEUKOCYTE ESTERASE ,URINE NEGATIVE Leu/uL (NEGATIVE); NITRATE,URINE NEGATIVE (NEGATIVE); OCCULT BLOOD,URINE NEGATIVE (NEGATIVE)
[2025-06-17 18:34] LABS: ADD UA MICROSCOPIC NO
--- NOTE | 2025-06-17 19:58 | HMCIMG ---
EXAM: CR Chest, 1 View. CLINICAL HISTORY: cp COMPARISON: 05/09/2024 FINDINGS: LUNGS: There is no mass, infiltrate, or acute pulmonary abnormality. PLEURAL SPACES: No evidence of pleural effusion or pneumothorax. MEDIASTINUM: Cardiac size and mediastinal contours within normal limits. BONES: No acute osseous abnormality. IMPRESSION: No acute cardiopulmonary pathology is evident. /[place]
[2025-06-17 20:00] VITALS: PULSE 69; RESP 18
[2025-06-17] MEDS: MAG/ALUM/SIMETH 30 ML UDCUP PO ONE (20:00)
[2025-06-17] MEDS: LIDOCAINE HCL 2% VISCOUS 15 ML UDCUP PO ONE (20:00)
[2025-06-17] MEDS: DICYCLOMINE HCL 10 MG/5 ML ML PO ONE (20:00)
--- NOTE | 2025-06-17 20:18 | EKG ---
[facility] Test Date: 2025-06-17 Test Time: 20:13:19 Pat Name: GERONIMO WORRELL Department: [facility] Room: ED Gender: F Sole Leveler: [id number] : 1965 Requested By: RG RECINOS Order Number: [id number] Reading MD: Eladio Apple Measurements Intervals [place] Rate: 77 P: 64 [place]: 136 QRS: 10 QRSD: 81 T: 42 QT: 381 QTc: 433 Interpretive Statements Sinus rhythm Compared to ECG 06/17/2025 17:14:11 No significant changes Electronically Signed On 06-18-2025 14:37:59 CDT by Eladio Apple Please click the below link to view image of tracing.
--- NOTE | 2025-06-17 20:59 | HP ---
History of Present Illness Reason for Visit: cp History of Present Illness Ms. Murray is a 59-year-old female that was seen and examined today on 06/17/2025. Patient is a good historian of personal health Patient reports that she came to the emergency department with a chief complaint of chest pain. Onset was today at 6:00 a.m.. Location is midsternal. Duration is on and off. Character is described as pressure. Pain radiates to jaw. There was no alleviating factors. There was no aggravating factors. Patient took Maritza-[place] and this mildly helped but then chest pain recurred. Patient denies any associated shortness of breath or dizziness. Today in the emergency department CBC unremarkable, chemistry unremarkable, troponin unremarkable x2, urinalysis unremarkable, chest x-ray unremarkable, CT of the chest is unremarka ble. Emergency room physician recommended that patient be admitted with a diagnosis of chest pain. Past Medical History Patient History: Cardiovascular disease FATHER BROTHER Diabetes mellitus FATHER BROTHER BROTHER BROTHER Hypertension BROTHER Unknown MOTHER FATHER No Family History of: Carcinomas ADDITIONAL PAST MEDICAL HISTORY: [Hypertension, asthma, hyperlipidemia, Diabetes mellitius type2, hypothyroidism] SOCIAL HISTORY: [Negative for smoking, alcohol use, drug use. Patient lives alone with her Ababrad/Harjeet Aethon dog named nelson. Patient denies difficulty paying her bills. Patient has good access to health care through her insurance. Patient is typically independent of all her ADLs. SURGICAL HISTORY: [ section x2, hysterectomy, left foot tumor excision, cholecystectomy] Review of Systems General: No Fever, No Chills, No Night Sweats, No Fatigue, No Malaise, No Appetite, No Other HEENT: No Head Aches, No Visual Changes, No Eye Pain, No Ear Pain, No Dysphasia, No Sinus Congestion, No Post Nasal Drip, No Sore Throat, No Other Pulmonary: No Dyspnea, No Cough, No Pleuritic Chest Pain, No Other Cardiovascular: Chest Pain; No: Palpitations, Orthopnea, Paroxysmal Noc. Dyspnea, Edema, Lt Headedness, Other Gastrointestinal: No: Nausea, Vomiting, Abdominal Pain, Diarrhea, Constipation, Melena, Hematochezia, Other Genitourinary: No Dysuria, No Frequency, No Incontinence, No Hematuria, No Retention, No Other Musculoskeletal: No: other, neck pain, shoulder pain, arm pain, back pain, hand pain, leg pain, foot pain Skin: No Urticaria, No Rash, No Other Neurological: No: Weakness, Numbness, Incoordination, Change in speech, Confusion, Seizures, Other Allergies: Coded Allergies: No Known Drug Allergies (Unverified Allergy, Unknown, 11/20/17) Scheduled Albuterol Sulfate (Proair Hfa), 2 PUFF IH Q4HPRN Azithromycin (Zithromax), 250 MG PO DAILY Benzonatate (Tessalon Perle), 100 MG PO TIDP Cyclobenzaprine HCl (Cyclobenzaprine HCl), 10 MG PO DAILYDINNER Cyclobenzaprine HCl (Cyclobenzaprine HCl), 1 TAB PO TID D-Methorphan Hb/P-Epd HCl/Bpm (Bromfed Dm Cough Syrup), 7.5 ML PO TID Ketorolac Tromethamine (Ketorolac Tromethamine), 10 MG PO BID Lisinopril/Hydrochlorothiazide (Lisinopril-Hctz 20-12.5 mg Tab), 1 EACH PO DAILY, (Reported) Multivitamin (Multi Vitamin Daily), 1 EACH PO DAILY, (Reported) Omeprazole (Omeprazole), 1 CAP PO DAILY Ondansetron (Ondansetron Odt), 4 MG PO Q6HPRN Prednisone (Prednisone), 1 TAB PO DAILY Prednisone (Prednisone), 1 TAB PO AD Scheduled PRN Ibuprofen (Ibuprofen 800 mg Tab), 800 MG PO Q8H PRN for fever or pain Exam Vital Signs Vital Signs Date Time Temp Pulse Resp B/P (MAP) Pulse Ox O2 Delivery O2 Flow Rate FiO2 06/17/25 20:00 69 18 06/17/25 19:24 97.3 167/65 98 Room Air* 0 21 General Appearance: Alert, Oriented X3, Cooperative, No acute distress HEENT: Atraumatic, EOMI, Mucous membr. moist/pink Respiratory: Clear to auscultation, Normal air movement, NL respiratory effort Cardiovascular: Regular rate, Regular rhythm, Normal S1, Normal S2 Abdominal: Normal bowel sounds, Soft, No tenderness Extremities: No edema Skin: No significant lesion Neuro: Normal speech, Strength at 5/5 X4 ext, Sensation intact, Cranial nerves 3-12 NL Psych/Mental Status: Mental status NL, Mood NL, Thoughts/Content NL Assessment/Plan ASSESSMENT: [ Chest pain, POA Hypertension Asthma Hyperlipidemia Diabetes mellitius type2 Hypothyroidism] PLAN: [ Admit patient to telemetry floor as inpatient status. Place patient on telemetry monitoring. Administer aspirin 162 mg by mouth times 1 dose Continue aspirin 81 mg by mouth once daily Nitropaste 0.5 inches anterior chest wall every 8 hours Trend troponin every 6 hours x 3 sets Supplemental oxygen to maintain O2 saturation greater than 92% Consult cardiology if any elevation in troponin or troponin uptrending, or if patient deemed to need stress test by daytime rouding service. Consider resuming home medications once they have been reconciled. At time of admission home medications has been reconciled. Check hemoglobin A1c in a.m. Glucometer checks a.c. and HS 1800 ADA diet Humalog sliding scale full-dose For now: Hydralazine 10 mg IV every 4 hours for systolic blood pressure greater than 160 mmHg Atorvastatin 40 mg by mouth once daily Check TSH in a.m., follow up with the results GI prophylaxis, famotidine DVT prophylaxis, Lovenox ADVANCED CARE PLANNING 1. Which of the following were discussed? Hospice Care - Yes Therapeutic options - yes Advance Directives - Yes - patient states that she does not have any advance directives in place at this time, however her daughter Yulia Tafoya can make decisions for her if she becomes unable. Other discussions - patient wishes to remain a full code 2. Discussed with who? Patient 3. Voluntary nature of this service was explained to the patient? Yes 4. Amount of time spent - ___16 minutes____ 5. Reviewed by Physician? (if this service was performed by NPP) Yes This document was generated in part using voice recognition software, occasional wrong word or sound alike substitutions may have occurred due to the inherent limitations of voice recognition software. Read the chart carefully and recognize using context, where the substitutions have occurred. Although every effort was made to edit the content, lay out drafter and typing errors may occur ATTESTATION BY PHYSICIAN I have seen and examined the patient. I reviewed the documentation, medical decision making, and treatment plan as noted by the mid-level provider above. I agree with the findings and plan of care.] [facility]O [facility] Jun 17, 2025 20:59
[2025-06-17] MEDS ORDERED: IOHEXOL-350 75 ML VIAL IV ONE (21:13)
--- NOTE | 2025-06-17 22:39 | HMCIMG ---
EXAM: CTA Chest with Intravenous Contrast CLINICAL HISTORY: 59 year old female with persistent chest pain. TECHNIQUE: Axial CTA images of the chest with intravenous contrast. Three-dimensional MIP/volume rendered reformations were performed. Dose reduction technique was used including one or more of the following: automated exposure control, adjustment of mA and kV according to patient size, and/or iterative reconstruction. CONTRAST: standard dose of IV contrast. COMPARISON: None provided. FINDINGS: PULMONARY ARTERIES: There is no intraluminal filling defect suspicious for PE, and pulmonary embolism is negative. AORTA: No thoracic aortic aneurysm or dissection. LUNGS: The lungs are clear. No pulmonary mass. No focal airspace consolidation. PLEURAL SPACES: No pleural effusion. No pneumothorax. HEART AND MEDIASTINUM: No cardiomegaly. No significant pericardial effusion. LYMPH NODES: No lymphadenopathy. BONES: Moderate degenerative changes of the thoracic spine. No focal osseous abnormality or acute fracture. CHEST WALL AND UPPER ABDOMEN: Cholecystectomy clips are present. The fatty liver is noted. Images through the upper abdomen are otherwise unremarkable. The chest wall is unremarkable. IMPRESSION: 1. No evidence of pulmonary embolism. /[place]
[2025-06-18] VITALS (7 sets, daily range): BP systolic 183; BP diastolic 80; PULSE 68–77; RESP 18–22; TEMP 97.9; O2SAT 96–100
[2025-06-18] MEDS ORDERED: LACTULOSE 20 GM/30 ML UDCUP PO PRN (00:30)
[2025-06-18] MEDS: ASPIRIN 81MG CHEW TAB PO ONE (01:01)
[2025-06-18] MEDS: NITROGLYCERIN 1GM OINT 1 INCH/1GM TD SCH (01:02)
[2025-06-18] MEDS: ALBUTEROL 0.083% 2.5 MG/3 ML INH IH SCH (06:37)
[2025-06-18 06:46] LABS: IMMATURE GRANULOCYTE ABSOLUTE 0.01 K/uL (0-1); NUCLEATED RED BLOOD CELLS 0.0 % (0.0-0.19); PLATELET COUNT (AUTO) 157 K/uL (130-400); RED BLOOD CELL COUNT(AUTO) 4.31 MIL/uL (4.00-5.50); RED CELL DISTRIBUTION WIDTH 12.9 % (11.0-15.5); WHITE BLOOD COUNT (AUTO) 5.3 K/uL (4.8-10.8)
[2025-06-18 07:15] LABS: CREATININE 0.4 mg/dL (0.5-1.0); GLOMERULAR FILTR. RATE CALC 113.0 mL/min (>90); GLUCOSE,RANDOM 140.0 mg/dL (70-105); PHOSPHORUS 3.2 mg/dL (2.5-4.9); SODIUM SERUM 138.0 mmol/L (136-145); UREA NITROGEN, BLOOD 14.0 mg/dL (7-18)
[2025-06-18] MEDS: FAMOTIDINE 20MG TAB PO SCH (09:15)
[2025-06-18] MEDS: ASPIRIN 81 MG EC TAB PO SCH (09:15)
[2025-06-18] MEDS: ENOXAPARIN SODIUM 40 MG/0.4 ML SYRINGE SQ SCH (09:16)
--- NOTE | 2025-06-18 10:09 | NUR ---
DCP:HOME Pt currently lives alone in her home. Pt does not have any DME, home health, or provider services. Pt states that she is able to complete ADLs independently. PCP is Jessica Boogie and uses [facility] for any RX needs. At ME pt will want to go home and family can assist with transportation. Addendum: 06/18/25 at 1010 by JERILYN FLOYD SS Amended: Links added.
--- NOTE | 2025-06-18 15:17 | PN ---
[facility] PROGRESS NOTE Date of Service: Jun 18, 2025 Time of Service: 15:[address] Jenkins SUBJECTIVE: [ 06/17 Ms. Murray is a 59-year-old female that was seen and examined today on 06/17/2025. Patient is a good historian of personal health Patient reports that she came to the emergency department with a chief complaint of chest pain. Onset was today at 6:00 a.m.. Location is midsternal. Duration is on and off. Character is described as pressure. Pain radiates to jaw. There was no alleviating factors. There was no aggravating factors. Patient took Maritza-[place] and this mildly helped but then chest pain recurred. Patient denies any associated shortness of breath or dizziness. Today in the emergency department CBC unremarkable, chemistry unremarkable, troponin unremarkable x2, urinalysis unremarkable, chest x-ray unremarkable, CT of the chest is unremarkable. Emergency room physician recommended that patient be admitted with a diagnosis of chest pain. 06/18 patient was seen by nurse practitioner and physician during rounding in room ED 1. Chest CT negative. Chest x-ray negative. Troponin negative x4. We will order 2D echo. Once 2D echo will be negative patient will be discharged home. Patient patient stated that she has a middle chest burning sensation that goes up her throat. We anticipate patient may have gastric reflux/GERD. We will continue to monitor patient in the meantime. A.m. labs anticipated discharge within 24 hours. If 2D echo abnormal we will consult special inspector.] REVIEW OF SYSTEMS CONSTITUTIONAL: Denies fevers, chills, or night sweats. No unintentional weight loss reported. NEUROLOGICAL: Denies headache, amaurosis fugax, motor weakness, sensory deficit, vertigo/spinning sensation, gait abnormalities, or tremors. ENT: No hearing loss, otalgia, otorrhea, rhinitis, rhinorrhea, hoarseness, or sore throat. CARDIOVASCULAR: Denies any exertional angina, dyspnea on exertion, orthopnea, paroxysmal nocturnal dyspnea, palpitations, life-threatening arrhythmias, claudication. PULMONARY: Denies any shortness of breath, cough, phlegm/sputum, hemoptysis, pleuritic chest pain. SLEEP: Denies morning headaches, daytime somnolence or napping. Denies difficulty falling asleep, staying asleep, waking from sleep. Denies knowledge of snoring. GASTROINTESTINAL: Denies any type of dysphagia to either liquids or solids. Denies nausea, vomiting, pyrosis, early satiety, abdominal pain, diarrhea, constipation, or changes in stool consistency or caliber. Denies coffee-ground emesis, hematemesis, hematochezia, or melanotic stools. GENITOURINARY: Denies frequency, urgency, nocturia, hematuria or incontinence (Storage/Irritative symptoms.) Low urinary stream, straining to void, urinary intermittency or hesitancy, splitting of the voiding stream, terminal dribbling. ENDOCRINOLOGIC: Denies polyuria, polydipsia, polyphagia or heat/cold intolerances. HEMATOLOGIC: Denies thrombophilia/previous clots, or coagulopathy/bleeding disorders. ONCOLOGIC: Denies personal history of malignancy. DERMATOLOGIC: Denies rashes or pruritus. PSYCHIATRIC: Denies any suicidal or homicidal ideation. Denies hallucinations. PHYSICAL EXAM GENERAL APPEARANCE: The patient is awake, alert, and oriented, in no acute cardiopulmonary distress. NEUROLOGICAL: Cranial nerves II-XII grossly intact. Motor is 5/5 in bilateral upper and lower extremities proximal to distal. No sensory deficits. HEENT: Face is symmetric. Pupils are equal and reactive. Extraocular movements are intact. NECK: Supple. No JVD. No thyromegaly. No submental, submandibular, pre- /postauricular, occipital or supraclavicular lymphadenopathy. CHEST: Normal chest expansion. No Telemetry. LUNGS: Absence of any rales, rhonchi or any wheezing. CARDIOVASCULAR: Regular. S1 and S2 normal. No appreciable rubs, murmurs or gallops. ABDOMEN: Soft, nontender, and nondistended. There is no rebound, voluntary guarding, or rigidity. : Deferred. No [place]. EXTREMITIES: Non-edematous and not cyanotic. No clubbing. Good capillary refill. SKIN: No skin breakdown. Vital Signs (last 8hr) Date Time Temp Pulse Resp B/P (MAP) Pulse Ox O2 Delivery O2 Flow Rate FiO2 06/18/25 11:12 76 20 N/A Room Air 21 06/18/25 11:10 76 20 06/18/25 08:30 98.1 77 16 123/63 99 Room Air* 0 21 LABS: Laboratory: Test 06/18/25 12:35 06/18/25 06:32 06/17/25 18:24 06/17/25 17:49 Range/Units Troponin I High Sensitivity 11 4-50 ng/L White Blood Count 5.3 4.8-10.8 K/uL Red Blood Count 4.31 4.00-5.50 MIL/uL Hemoglobin 13.6 12.0-16.0 g/dL Hematocrit 40.3 36-48 % Mean Corpuscular Volume 93.5 79-99 fL Mean Corpuscular Hemoglobin 31.6 27.0-33.0 pg Mean Corpuscular Hemoglobin Concent 33.7 32.0-36.0 g/dL Red Cell Distribution Width 12.9 11.0-15.5 % Platelet Count 157 130-400 K/uL Mean Platelet Volume 11.4 H 7.5-10.5 fL Immature Granulocyte % (Auto) 0.2 0-1 % Neutrophils (%) (Auto) 87.1 H 40.0-77.0 % Lymphocytes (%) (Auto) 11.6 L 21.0-51.0 % Monocytes (%) (Auto) 1.1 L 3.0-13.0 % Eosinophils (%) (Auto) 0.0 0.0-8.0 % Basophils (%) (Auto) 0.0 0.0-5.0 % Neutrophils # (Auto) 4.6 1.8-7.7 K/uL Lymphocytes # (Auto) 0.6 L 1.0-4.8 K/uL Monocytes # (Auto) 0.1 0.1-1.0 K/uL Eosinophils # (Auto) 0.00 0.00-0.70 K/uL Basophils # (Auto) 0.00 0.00-0.20 K/uL Absolute Immature Granulocyte (auto 0.01 0-1 K/uL Nucleated Red Blood Cells 0.0 0.0-0.19 % Sodium Level 138 136-145 mmol/L Potassium Level 4.4 3.5-5.1 mmol/L Chloride Level 104 101-111 mmol/L Carbon Dioxide Level 27 21-32 mmol/L Blood Urea Nitrogen 14 7-18 mg/dL Creatinine 0.4 L 0.5-1.0 mg/dL Glomerular Filtration Rate Calc 113 >90 mL/min Random Glucose 140 H 70-105 mg/dL Total Calcium 8.7 8.5-10.1 mg/dL Phosphorus Level 3.2 2.5-4.9 mg/dL Magnesium Level 2.10 1.80-2.40 mg/dL Thyroid Stimulating Hormone (TSH) 0.99 0.36-3.74 uIU/mL Urine Color LIGHT-YELLOW YELLOW Urine Appearance CLEAR CLEAR Urine pH 6.5 5.0-8.0 Urine Specific [place] 1.010 1.001-1.031 Urine Protein NEGATIVE NEGATIVE mg/dL Urine Glucose (UA) NEGATIVE NEGATIVE mg/dL Urine Ketones NEGATIVE NEGATIVE mg/dL Urine Occult Blood NEGATIVE NEGATIVE Urine Nitrate NEGATIVE NEGATIVE Urine Bilirubin NEGATIVE NEGATIVE mg/dL Urine Urobilinogen 0.2 0.2-1.0 mg/dL Urine Leukocyte Esterase NEGATIVE NEGATIVE David/uL Hemoglobin A1c 5.3 4.0-6.0 % Estimated Average Glucose (eAG) 105 70-126 mg/dL Current Medications Medications (Trade) Dose Ordered Sig/Tone Route PRN Reason Start Time Stop Time Status Last Admin Dose Admin Acetaminophen (TYLenol 325MG TAB) 650 mg Q6H PRN PO TEMPERATURE GREATER THAN 101.5 06/18/25 00:30 07/18/25 00:29 Albuterol Sulfate (Proventil 0.083% 2.5mg/3ml) 2.5 mg [id number] IH 06/18/25 06:00 07/18/25 05:59 06/18/25 11:10 2.5 MG Aspirin (Aspirin 81mg Ec Tab) 81 mg DAILY PO 06/18/25 09:00 07/18/25 08:59 06/18/25 09:15 81 MG Atorvastatin Calcium (LIPItor 40MG) 40 mg HS PO 06/18/25 21:00 07/18/25 20:59 Enoxaparin Sodium (Lovenox) 40 mg DAILY SQ 06/18/25 09:00 07/18/25 08:59 06/18/25 09:16 40 MG Famotidine (Pepcid 20mg Tab) 20 mg DAILY PO 06/18/25 09:00 07/18/25 08:59 06/18/25 09:15 20 MG Hydralazine HCl (APRESOLine 20MG INJ) 10 mg Q6H PRN IV For:SBP above 160;DBP above 90 06/18/25 00:30 07/18/25 00:29 Insulin Human Regular (humuLIN R 100 UNIT/ML 3ML) INSULIN SLIDING SCAL... ACHS SQ 06/18/25 07:30 07/18/25 07:29 Lactulose (Constulose 20gm/ 30ml Udcup) 20 gm BID PRN PO CONSTIPATION 06/18/25 00:30 07/18/25 00:29 Morphine Sulfate (morPHINE 2MG SYG) 2 mg Q4H PRN IVP SEVERE PAIN (7-10) 06/18/25 00:30 06/25/25 00:29 Nitroglycerin (Nitroglycerin 1gm Oint) 0.5 inch Q8H TD 06/18/25 00:30 07/18/25 00:29 06/18/25 09:15 0.5 INCH Ondansetron HCl (zoFRAN 4MG INJ) 4 mg Q6H PRN IV NAUSEA/VOMITING 06/18/25 00:30 07/18/25 00:29 DIAGNOSTICS / RADIOLOGY: [ ] ASSESSMENT: [ Acute Chest pain, POA Uncontrolled Hypertension GERD Asthma Hyperlipidemia Uncontrolled Diabetes mellitius type2 Hypothyroidism ] PLAN: [ Chest CT negative. Chest x-ray negative. Troponin negative x4. We will order 2D echo. Once 2D echo will be negative patient will be discharged home. Patient patient stated that she has a middle chest burning sensation that goes up her throat. We anticipate patient may have gastric reflux/GERD. We will continue to monitor patient in the meantime. A.m. labs anticipated discharge within 24 hours. If 2D echo abnormal we will consult special inspector. ] ATTESTATION BY PHYSICIAN I have seen and examined the patient. I reviewed the documentation, medical decision making, and treatment plan as noted by the mid-level provider above. I agree with the findings and plan of care. Sury Jenkins MD, [employer] Jun 18, 2025 15:17
[2025-06-18] MEDS ORDERED: ERGO500093 PO (23:51)
[2025-06-18] MEDS ORDERED: LEVO50CA5 PO (23:51)
[2025-06-18] MEDS ORDERED: METO-409 PO (23:51)
[2025-06-18] MEDS ORDERED: PIOG30TA70 PO (23:51)
[2025-06-19] VITALS (13 sets, daily range): BP systolic 108–153; BP diastolic 55–87; PULSE 70–116; RESP 16–20; TEMP 97.5–98.2; O2SAT 99–100
[2025-06-19 04:33] LABS: IMMATURE GRANULOCYTE ABSOLUTE 0.05 K/uL (0-1); NUCLEATED RED BLOOD CELLS 0.0 % (0.0-0.19); PLATELET COUNT (AUTO) 171 K/uL (130-400); RED BLOOD CELL COUNT(AUTO) 3.76 MIL/uL (4.00-5.50); RED CELL DISTRIBUTION WIDTH 13.6 % (11.0-15.5); WHITE BLOOD COUNT (AUTO) 11.5 K/uL (4.8-10.8)
[2025-06-19 04:50] LABS: ASPARTATE AMINOTRANSFERASE 22.0 U/L (10-37); CREATININE 0.9 mg/dL (0.5-1.0); GLOMERULAR FILTR. RATE CALC 73.0 mL/min (>90); GLUCOSE,RANDOM 113.0 mg/dL (70-105); SODIUM SERUM 140.0 mmol/L (136-145); TOTAL PROTEIN, SERUM 6.1 g/dL (6.0-8.3); UREA NITROGEN, BLOOD 28.0 mg/dL (7-18)
--- NOTE | 2025-06-19 15:34 | HMCSR ---
APPROVED REPORT EXAM: Two-dimensional and M-mode echocardiogram with Doppler and color Doppler. INDICATION ICD: Heart Failure 2D Dimensions RVDd2.9 cmLVEF(%)43.5 (>50%)LVED Vol(simp.)85.4 mL IVSd0.8 (0.7-1.1cm)FS(%)21 %LVES Vol(simp.)27.3 mL LVDd4.4 (3.8-5.6cm)LA (2D)3.6 (1.6-4.0cm)LVEF(%, simp.)68 % PWd1.1 (0.7-1.1cm)Ao Root(2D)2.7 (2.0-3.7cm)LA ESV INDEX (BP)26.97 mL/m2 LVDs3.5 (2.5-4.0cm)LVOT diam1.8 (1.8-2.4cm) IVC diam1.6 cm Deformation Strain Apical 4-18.0 % Apical 2-22.1 % Apical 3-18.3 % Global Strain-19.5 % M-Mode Dimensions EPSS0.7 cm LA (MM)3.8 (1.6-4.0cm) Ao Root(MM)2.6 (2.0-3.7cm) Aortic Valve AoV Vmax1.8 m/Rosalie Peak GR13.4 mmHgLVOT Vmax1.3 m/s AoV VTI0.4 mAo Mean GR7.0 mmHgLVOT VTI0.27 m NEHAL (VMAX)1.73 cm2AVA (VTI) 1.8 cm2 Mitral Valve MV E Vmax97.9 cm/sDECEL Nqbu140 ms MV A Vmax55.9 cm/sP 1/2 T37 ms E/A ratio1.8MVA (PHT)5.9 cm2 TDI E/E' Medial9.1E/E' Lateral8.4 Medial E' Peak V10.81 cm/sLateral E' Peak V11.70 cm/s Pulmonary Valve PV Vmax1.4 m/sPV VTI0.25 mPV Mean GR3.5 mmHg PV Peak GR7.3 mmHg Tricuspid Valve TR Vmax2.5 m/sRVSP24.8 mmHg TR Peak GR26.8 mmHg Left Ventricle The left ventricle is normal size. There is normal LV segmental wall motion. There is normal left astrid tricular wall thickness. LVEF is 60-65%. The left ventricular diastolic function is normal. Right Ventricle The right ventricle is normal size. The right ventricular systolic function is normal. Atria The left atrium size is normal. The right atrium size is normal. Aortic Valve The aortic valve is normal in structure. No aortic regurgitation is present. There is no aortic valvu lar stenosis. Mitral Valve The mitral valve is normal in structure. Mitral regurgitation is trace There is no mitral valve steno sis. Tricuspid Valve The tricuspid valve is normal in structure. There is trace tricuspid valve regurgitation noted. Pulmonic Valve Pulmonic valve is not well visualized. There is no pulmonic valvular regurgitation. Great Vessels The aortic root is normal in size. The IVC is normal in size and collapses >50% with inspiration. Pericardium There is no pericardial effusion. Other Information Quality : Fair Conclusion The left ventricle is normal size. LVEF is 60-65% with normal LV segmental wall motion. The left ventricular diastolic function is normal. The right ventricular systolic function is normal. Both atria are normal in size. No hemodynamically significant valvular abnormalities. There is no pericardial effusion.
--- NOTE | 2025-06-19 16:43 | PN ---
[facility] PROGRESS NOTE Date of Service: Jun 19, 2025 Time of Service: 16:[address] Skaggs SUBJECTIVE: [ 06/17 Ms. Murray is a 59-year-old female that was seen and examined today on 06/17/2025. Patient is a good historian of personal health Patient reports that she came to the emergency department with a chief complaint of chest pain. Onset was today at 6:00 a.m.. Location is midsternal. Duration is on and off. Character is described as pressure. Pain radiates to jaw. There was no alleviating factors. There was no aggravating factors. Patient took Maritza-Reinbeck and this mildly helped but then chest pain recurred. Patient denies any associated shortness of breath or dizziness. Today in the emergency department CBC unremarkable, chemistry unremarkable, troponin unremarkable x2, urinalysis unremarkable, chest x-ray unremarkable, CT of the chest is unremarkable. Emergency room physician recommended that patient be admitted with a diagnosis of chest pain. 06/18 patient was seen by nurse practitioner and physician during rounding in room ED 1. Chest CT negative. Chest x-ray negative. Troponin negative x4. We will order 2D echo. Once 2D echo will be negative patient will be discharged home. Patient patient stated that she has a middle chest burning sensation that goes up her throat. We anticipate patient may have gastric reflux/GERD. We will continue to monitor patient in the meantime. A.m. labs anticipated discharge within 24 hours. If 2D echo abnormal we will consult sound assistant. 06/19 patient was seen by nurse practitioner physician during rounding. 2D echo shows 60 to 65% left ventricle diastolic function normal. Troponin were negative we will not consult any sound assistant at this point. After talking to the patient patient may experience GERD versus reflux. Patient requested GI to be consulted. Patient also will receive2 g of magnesium and 40 mEq of potassium. We will continue to monitor patient in the meantime. A.m. labs.] REVIEW OF SYSTEMS CONSTITUTIONAL: Denies fevers, chills, or night sweats. No unintentional weight loss reported. NEUROLOGICAL: Denies headache, amaurosis fugax, motor weakness, sensory deficit, vertigo/spinning sensation, gait abnormalities, or tremors. ENT: No hearing loss, otalgia, otorrhea, rhinitis, rhinorrhea, hoarseness, or sore throat. CARDIOVASCULAR: Denies any exertional angina, dyspnea on exertion, orthopnea, paroxysmal nocturnal dyspnea, palpitations, life-threatening arrhythmias, claudication. PULMONARY: Denies any shortness of breath, cough, phlegm/sputum, hemoptysis, pleuritic chest pain. SLEEP: Denies morning headaches, daytime somnolence or napping. Denies difficulty falling asleep, staying asleep, waking from sleep. Denies knowledge of snoring. GASTROINTESTINAL: Denies any type of dysphagia to either liquids or solids. Denies nausea, vomiting, pyrosis, early satiety, abdominal pain, diarrhea, constipation, or changes in stool consistency or caliber. Denies coffee-ground emesis, hematemesis, hematochezia, or melanotic stools. GENITOURINARY: Denies frequency, urgency, nocturia, hematuria or incontinence (Storage/Irritative symptoms.) Low urinary stream, straining to void, urinary intermittency or hesitancy, splitting of the voiding stream, terminal dribbling. ENDOCRINOLOGIC: Denies polyuria, polydipsia, polyphagia or heat/cold intolerances. HEMATOLOGIC: Denies thrombophilia/previous clots, or coagulopathy/bleeding disorders. ONCOLOGIC: Denies personal history of malignancy. DERMATOLOGIC: Denies rashes or pruritus. PSYCHIATRIC: Denies any suicidal or homicidal ideation. Denies hallucinations. PHYSICAL EXAM GENERAL APPEARANCE: The patient is awake, alert, and oriented, in no acute cardiopulmonary distress. NEUROLOGICAL: Cranial nerves II-XII grossly intact. Motor is 5/5 in bilateral upper and lower extremities proximal to distal. No sensory deficits. HEENT: Face is symmetric. Pupils are equal and reactive. Extraocular movements are intact. NECK: Supple. No JVD. No thyromegaly. No submental, submandibular, pre-/postauricular, occipital or supraclavicular lymphadenopathy. CHEST: Normal chest expansion. No Telemetry. LUNGS: Absence of any rales, rhonchi or any wheezing. CARDIOVASCULAR: Regular. S1 and S2 normal. No appreciable rubs, murmurs or gallops. ABDOMEN: Soft, nontender, and nondistended. There is no rebound, voluntary guarding, or rigidity. : Deferred. No Sawyer. EXTREMITIES: Non-edematous and not cyanotic. No clubbing. Good capillary refill. SKIN: No skin breakdown. Vital Signs (last 8hr) Date Time Temp Pulse Resp B/P (MAP) Pulse Ox O2 Delivery O2 Flow Rate FiO2 06/19/25 12:00 97.7 111 18 121/55 95 Room Air 06/19/25 11:16 76 18 LABS: Laboratory: Test 06/19/25 16:15 06/19/25 04:11 06/18/25 12:35 06/18/25 06:32 Range/Units Whole Blood Glucose 119 H 70-110 MG/DL Bedside Glucose Comment Notified Nurse White Blood Count 11.5 #H 4.8-10.8 K/uL Red Blood Count 3.76 L 4.00-5.50 MIL/uL Hemoglobin 11.7 L 12.0-16.0 g/dL Hematocrit 36.4 36-48 % Mean Corpuscular Volume 96.8 79-99 fL Mean Corpuscular Hemoglobin 31.1 27.0-33.0 pg Mean Corpuscular Hemoglobin Concent 32.1 32.0-36.0 g/dL Red Cell Distribution Width 13.6 11.0-15.5 % Platelet Count 171 130-400 K/uL Mean Platelet Volume 11.2 H 7.5-10.5 fL Immature Granulocyte % (Auto) 0.4 0-1 % Neutrophils (%) (Auto) 67.6 40.0-77.0 % Lymphocytes (%) (Auto) 22.8 21.0-51.0 % Monocytes (%) (Auto) 8.7 3.0-13.0 % Eosinophils (%) (Auto) 0.3 0.0-8.0 % Basophils (%) (Auto) 0.2 0.0-5.0 % Neutrophils # (Auto) 7.8 H 1.8-7.7 K/uL Lymphocytes # (Auto) 2.6 1.0-4.8 K/uL Monocytes # (Auto) 1.0 0.1-1.0 K/uL Eosinophils # (Auto) 0.03 0.00-0.70 K/uL Basophils # (Auto) 0.02 0.00-0.20 K/uL Absolute Immature Granulocyte (auto 0.05 0-1 K/uL Nucleated Red Blood Cells 0.0 0.0-0.19 % Sodium Level 140 136-145 mmol/L Potassium Level 3.8 3.5-5.1 mmol/L Chloride Level 105 101-111 mmol/L Carbon Dioxide Level 25 21-32 mmol/L Blood Urea Nitrogen 28 H 7-18 mg/dL Creatinine 0.9 0.5-1.0 mg/dL Glomerular Filtration Rate Calc 73 >90 mL/min Random Glucose 113 H 70-105 mg/dL Total Calcium 8.6 8.5-10.1 mg/dL Magnesium Level 1.90 1.80-2.40 mg/dL Total Bilirubin 0.5 0.2-1.0 mg/dL Aspartate Amino Transf (AST/SGOT) 22 10-37 U/L Alanine Aminotransferase (ALT/SGPT) 34 12-78 U/L Alkaline Phosphatase 70 50-136 U/L Total Protein 6.1 6.0-8.3 g/dL Albumin 2.9 L 3.5-5.0 g/dL Troponin I High Sensitivity 11 4-50 ng/L Phosphorus Level 3.2 2.5-4.9 mg/dL Thyroid Stimulating Hormone (TSH) 0.99 0.36-3.74 uIU/mL Test 06/17/25 18:24 06/17/25 17:49 Range/Units Urine Color LIGHT-YELLOW YELLOW Urine Appearance CLEAR CLEAR Urine pH 6.5 5.0-8.0 Urine Specific Crescent 1.010 1.001-1.031 Urine Protein NEGATIVE NEGATIVE mg/dL Urine Glucose (UA) NEGATIVE NEGATIVE mg/dL Urine Ketones NEGATIVE NEGATIVE mg/dL Urine Occult Blood NEGATIVE NEGATIVE Urine Nitrate NEGATIVE NEGATIVE Urine Bilirubin NEGATIVE NEGATIVE mg/dL Urine Urobilinogen 0.2 0.2-1.0 mg/dL Urine Leukocyte Esterase NEGATIVE NEGATIVE David/uL Hemoglobin A1c 5.3 4.0-6.0 % Estimated Average Glucose (eAG) 105 70-126 mg/dL Current Medications Medications (Trade) Dose Ordered Sig/Tone Route PRN Reason Start Time Stop Time Status Last Admin Dose Admin Acetaminophen (TYLenol 325MG TAB) 650 mg Q6H PRN PO TEMPERATURE GREATER THAN 101.5 06/18/25 00:30 07/18/25 00:29 06/18/25 21:09 650 MG Albuterol Sulfate (Proventil 0.083% 2.5mg/3ml) 2.5 mg [id number] IH 06/18/25 06:00 07/18/25 05:59 06/19/25 11:16 2.5 MG Aspirin (Aspirin 81mg Ec Tab) 81 mg DAILY PO 06/18/25 09:00 07/18/25 08:59 06/19/25 10:43 81 MG Atorvastatin Calcium (LIPItor 40MG) 40 mg HS PO 06/18/25 21:00 07/18/25 20:59 06/18/25 20:56 40 MG Enoxaparin Sodium (Lovenox) 40 mg DAILY SQ 06/18/25 09:00 07/18/25 08:59 06/19/25 10:43 40 MG Famotidine (Pepcid 20mg Tab) 20 mg DAILY PO 06/18/25 09:00 07/18/25 08:59 06/19/25 10:43 20 MG Hydralazine HCl (APRESOLine 20MG INJ) 10 mg Q6H PRN IV For:SBP above 160;DBP above 90 06/18/25 00:30 07/18/25 00:29 Insulin Human Regular (humuLIN R 100 UNIT/ML 3ML) INSULIN SLIDING SCAL... ACHS SQ 06/18/25 07:30 07/18/25 07:29 Lactulose (Constulose 20gm/ 30ml Udcup) 20 gm BID PRN PO CONSTIPATION 06/18/25 00:30 07/18/25 00:29 Morphine Sulfate (morPHINE 2MG SYG) 2 mg Q4H PRN IVP SEVERE PAIN (7-10) 06/18/25 00:30 06/25/25 00:29 06/18/25 20:56 2 MG Nitroglycerin (Nitroglycerin 1gm Oint) 0.5 inch Q8H TD 06/18/25 00:30 07/18/25 00:29 06/19/25 10:44 0.5 INCH Ondansetron HCl (zoFRAN 4MG INJ) 4 mg Q6H PRN IV NAUSEA/VOMITING 06/18/25 00:30 07/18/25 00:29 DIAGNOSTICS / RADIOLOGY: [ ] ASSESSMENT: [ Acute Chest pain, ruled out POA Uncontrolled Hypertension GERD versus reflux Asthma Hyperlipidemia Uncontrolled Diabetes mellitius type2 Hypothyroidism ] PLAN: [ 2D echo shows 60 to 65% left ventricle diastolic function normal. Troponin were negative we will not consult any sound assistant at this point. After talking to the patient patient may experience GERD versus reflux. Patient requested GI to be consulted. Patient also will receive2 g of magnesium and 40 mEq of potassium. We will continue to monitor patient in the meantime. A.m. labs.] ATTESTATION BY PHYSICIAN I have seen and examined the patient. I reviewed the documentation, medical decision making, and treatment plan as noted by the mid-level provider above. I agree with the findings and plan of care. Yuri Skaggs IV, MD, [facility] [employer] Jun 19, 2025 16:43
[2025-06-19] MEDS ORDERED: HYDROcodone/APAP 5/325 1 TAB TABLET PO PRN (19:30)
[2025-06-19] MEDS: PoTASSium chloRIDE 20MEQ ER 20 MEQ ERTAB PO SCH (20:51)
[2025-06-19] MEDS ORDERED: MAGNESIUM 2GM PREMIX 50ML 50 ML IV SCH (21:00)
[2025-06-20] VITALS (12 sets, daily range): BP systolic 121–154; BP diastolic 58–87; PULSE 71–109; RESP 17–20; TEMP 97.7–98.2; O2SAT 97–100
--- NOTE | 2025-06-20 15:51 | CONS ---
GASTROENTEROLOGY CONSULTATION NOTE Date of Consultation: Jun 20, 2025 Time of Consultation: 15:47 History of Present Illness: 59-year-old female with past medical history of hypertension, diabetes presents to the emergency room for evaluation of midsternal chest pain., Patient underwent lab workup in ER which revealed troponin level within normal limits. We were consulted for EGD evaluation due to persistent epigastric pain concerning for GERD. Review of Systems: CONSTITUTIONAL: No malaise or change in sensation of wellbeing. ENMT: No rhinorrhea, otorrhea, sinus pain, ear ache. CARDIOVASCULAR: No angina, palpitations, orthopnea or paroxysmal dyspnea. RESPIRATORY: No SOB. GASTROINTESTINAL: No abdominal pain, nausea, vomiting, diarrhea, hematemesis, melena or change in the patient's habitual bowel movements consistency/number. GENITOURINARY: No dysuria, hematuria or change in bladder continence. MUSCULOSKELETAL: No new muscle pain or decrease in muscular strength. No new joint swelling, redness or tenderness. SKIN: No new rash. Past Medical History: [ ] Past Surgical History: [ ] Past Social History: [ ] Family History: [ ] Coded Allergies: No Known Drug Allergies (Unverified Allergy, Unknown, 11/20/17) Physical Exam: GEN: Awake, alert, oriented in person, time and place, and in no acute distress. HEENT: No sinus tenderness. Tympanic membranes were not examined. No rhinorrhea. Oral pharyngeal mucosa is pink, moist and within normal limits. Neck is supple with no cervical lymphadenopathy, thyromegaly or JVD. CHEST: Inspection, palpation and percussion of the chest were unremarkable. Lung auscultation revealed normal breath sounds bilaterally. CARDIAC: PMI is within normal limits. Heart sounds are regular. Normal S1, S2. No gallop or murmur. ABD: Soft, non-tender and not distended. No peritoneal signs on palpation. No organomegaly. Normal bowel sounds. EXT: No cyanosis or clubbing. No edema. SKIN: Intact. No rashes. JOINTS: No evidence of synovitis or acute arthritis. NEURO: Alert and oriented to name, place and person. Cranial nerve examination is unremarkable. No focal motor deficits. Normal speech. Gait is normal. Strength is normal. Vital Sign (Last 24 Hours) 06/20/25 06/20/25 08:00 12:00 Temp 98.1 Pulse 71 Resp 20 B/P (MAP) 149/87 Pulse Ox 100 O2 Delivery Room Air O2 Flow Rate 0 FiO2 21 Intake & Output (last 24hrs) 06/19/25 06/19/25 06/20/25 15:00 23:00 07:00 Intake Total 480 ml 360 ml Balance 480 ml 360 ml Laboratory: [ ] Laboratory: Test 06/20/25 11:08 06/19/25 04:11 Range/Units Whole Blood Glucose 83 70-110 MG/DL Bedside Glucose Comment Notified Nurse White Blood Count 11.5 #H 4.8-10.8 K/uL Red Blood Count 3.76 L 4.00-5.50 MIL/uL Hemoglobin 11.7 L 12.0-16.0 g/dL Hematocrit 36.4 36-48 % Mean Corpuscular Volume 96.8 79-99 fL Mean Corpuscular Hemoglobin 31.1 27.0-33.0 pg Mean Corpuscular Hemoglobin Concent 32.1 32.0-36.0 g/dL Red Cell Distribution Width 13.6 11.0-15.5 % Platelet Count 171 130-400 K/uL Mean Platelet Volume 11.2 H 7.5-10.5 fL Immature Granulocyte % (Auto) 0.4 0-1 % Neutrophils (%) (Auto) 67.6 40.0-77.0 % Lymphocytes (%) (Auto) 22.8 21.0-51.0 % Monocytes (%) (Auto) 8.7 3.0-13.0 % Eosinophils (%) (Auto) 0.3 0.0-8.0 % Basophils (%) (Auto) 0.2 0.0-5.0 % Neutrophils # (Auto) 7.8 H 1.8-7.7 K/uL Lymphocytes # (Auto) 2.6 1.0-4.8 K/uL Monocytes # (Auto) 1.0 0.1-1.0 K/uL Eosinophils # (Auto) 0.03 0.00-0.70 K/uL Basophils # (Auto) 0.02 0.00-0.20 K/uL Absolute Immature Granulocyte (auto 0.05 0-1 K/uL Nucleated Red Blood Cells 0.0 0.0-0.19 % Sodium Level 140 136-145 mmol/L Potassium Level 3.8 3.5-5.1 mmol/L Chloride Level 105 101-111 mmol/L Carbon Dioxide Level 25 21-32 mmol/L Blood Urea Nitrogen 28 H 7-18 mg/dL Creatinine 0.9 0.5-1.0 mg/dL Glomerular Filtration Rate Calc 73 >90 mL/min Random Glucose 113 H 70-105 mg/dL Total Calcium 8.6 8.5-10.1 mg/dL Magnesium Level 1.90 1.80-2.40 mg/dL Total Bilirubin 0.5 0.2-1.0 mg/dL Aspartate Amino Transf (AST/SGOT) 22 10-37 U/L Alanine Aminotransferase (ALT/SGPT) 34 12-78 U/L Alkaline Phosphatase 70 50-136 U/L Total Protein 6.1 6.0-8.3 g/dL Albumin 2.9 L 3.5-5.0 g/dL Current Medications Medications (Trade) Dose Ordered Sig/Tone Route PRN Reason Start Time Stop Time Status Last Admin Dose Admin Acetaminophen (TYLenol 325MG TAB) 650 mg Q6H PRN PO TEMPERATURE GREATER THAN 101.5 06/18/25 00:30 07/18/25 00:29 06/18/25 21:09 650 MG Acetaminophen/ Hydrocodone Bitart (NORco 5/325MG) 1 tab Q6H PRN PO MODERATE PAIN (4-6) 06/19/25 19:30 06/24/25 19:29 Albuterol Sulfate (Proventil 0.083% 2.5mg/3ml) 2.5 mg [id number] IH 06/18/25 06:00 07/18/25 05:59 06/20/25 11:53 2.5 MG Aspirin (Aspirin 81mg Ec Tab) 81 mg DAILY PO 06/18/25 09:00 07/18/25 08:59 06/20/25 09:30 81 MG Atorvastatin Calcium (LIPItor 40MG) 40 mg HS PO 06/18/25 21:00 07/18/25 20:59 06/19/25 20:51 40 MG Enoxaparin Sodium (Lovenox) 40 mg DAILY SQ 06/18/25 09:00 07/18/25 08:59 06/20/25 09:31 40 MG Ergocalciferol (Drisdol) 1,250 unit QSU PO 06/22/25 09:00 07/22/25 08:59 Famotidine (Pepcid 20mg Tab) 20 mg DAILY PO 06/18/25 09:00 07/18/25 08:59 06/20/25 09:30 20 MG Hydralazine HCl (APRESOLine 20MG INJ) 10 mg Q6H PRN IV For:SBP above 160;DBP above 90 06/18/25 00:30 07/18/25 00:29 Insulin Human Regular (humuLIN R 100 UNIT/ML 3ML) INSULIN SLIDING SCAL... ACHS SQ 06/18/25 07:30 07/18/25 07:29 Lactulose (Constulose 20gm/ 30ml Udcup) 20 gm BID PRN PO CONSTIPATION 06/18/25 00:30 07/18/25 00:29 Levothyroxine Sodium (SYNTHroid 50MCG TAB) 50 mcg SYN PO 06/20/25 06:30 07/20/25 06:29 06/20/25 06:28 50 MCG Magnesium Sulfate 50 ml @ 0 mls/hr PROTOCOL IV 06/19/25 21:00 07/19/25 20:59 Metoprolol Tartrate (loprESSOR) 100 mg DAILY PO 06/20/25 09:00 07/20/25 08:59 06/20/25 09:30 100 MG Morphine Sulfate (morPHINE 2MG SYG) 2 mg Q4H PRN IVP SEVERE PAIN (7-10) 06/18/25 00:30 06/25/25 00:29 06/18/25 20:56 2 MG Nitroglycerin (Nitroglycerin 1gm Oint) 0.5 inch Q8H TD 06/18/25 00:30 06/20/25 10:07 DC 06/20/25 00:27 0.5 INCH Ondansetron HCl (zoFRAN 4MG INJ) 4 mg Q6H PRN IV NAUSEA/VOMITING 06/18/25 00:30 07/18/25 00:29 Potassium Chloride (K-Dur/Klor-Con 20meq) 40 meq ONCE PO 06/19/25 21:00 06/19/25 23:59 DC 06/19/25 20:51 40 MEQ Diagnostics / Radiology: [COPY/PASTE HERE IF NO REPORTS PLEASE DELETE SECTION] Assessment: Epigastric pain GERD DDX: peptic ulcer disease, biliary colic, functional dyspepsia, atypical GERD, gastritis, gastroparesis, malignancy, and acute or chronic pancreatitis. Plan: 1. Recommend upper endoscopy in AM. Risk, benefits, alternatives and potential complications were discussed with the patient and they agree to proceed. 2. Recommend ultrasound of abdomen if not already completed. 3. Recommend labs: CBC, CMP, lipase 4. OK to start empiric pantoprazole 40 mg po daily Thank you for allowing us to participate in the care of this patient! MARTIN ZAIDI [facility] Jun 20, 2025 15:51
--- NOTE | 2025-06-20 17:25 | PN ---
[facility] PROGRESS NOTE Date of Service: Jun 20, 2025 Time of Service: 17:[address] Skaggs SUBJECTIVE: [ 06/17 Ms. Murray is a 59-year-old female that was seen and examined today on 06/17/2025. Patient is a good historian of personal health Patient reports that she came to the emergency department with a chief complaint of chest pain. Onset was today at 6:00 a.m.. Location is midsternal. Duration is on and off. Character is described as pressure. Pain radiates to jaw. There was no alleviating factors. There was no aggravating factors. Patient took [place] and this mildly helped but then chest pain recurred. Patient denies any associated shortness of breath or dizziness. Today in the emergency department CBC unremarkable, chemistry unremarkable, troponin unremarkable x2, urinalysis unremarkable, chest x-ray unremarkable, CT of the chest is unremarkable. Emergency room physician recommended that patient be admitted with a diagnosis of chest pain. 06/18 patient was seen by nurse practitioner and physician during rounding in room ED 1. Chest CT negative. Chest x-ray negative. Troponin negative x4. We will order 2D echo. Once 2D echo will be negative patient will be discharged home. Patient patient stated that she has a middle chest burning sensation that goes up her throat. We anticipate patient may have gastric reflux/GERD. We will continue to monitor patient in the meantime. A.m. labs anticipated discharge within 24 hours. If 2D echo abnormal we will consult tube machine operator helper. 06/19 patient was seen by nurse practitioner physician during rounding. 2D echo shows 60 to 65% left ventricle diastolic function normal. Troponin were negative we will not consult any tube machine operator helper at this point. After talking to the patient patient may experience GERD versus reflux. Patient requested GI to be consulted. Patient also will receive2 g of magnesium and 40 mEq of potassium. We will continue to monitor patient in the meantime. A.m. labs. 06/20 patient was seen by nurse practitioner and physician. Patient was seen by nurse practitioner from GI and at this moment they recommending EGD tomorrow morning. If negative patient is cleared to be discharged home. Anticipated discharge hours. We will continue to monitor patient in the meantime. A.m. labs.] REVIEW OF SYSTEMS CONSTITUTIONAL: Denies fevers, chills, or night sweats. No unintentional weight loss reported. NEUROLOGICAL: Denies headache, amaurosis fugax, motor weakness, sensory deficit, vertigo/spinning sensation, gait abnormalities, or tremors. ENT: No hearing loss, otalgia, otorrhea, rhinitis, rhinorrhea, hoarseness, or sore throat. CARDIOVASCULAR: Denies any exertional angina, dyspnea on exertion, orthopnea, paroxysmal nocturnal dyspnea, palpitations, life-threatening arrhythmias, claudication. PULMONARY: Denies any shortness of breath, cough, phlegm/sputum, hemoptysis, pleuritic chest pain. SLEEP: Denies morning headaches, daytime somnolence or napping. Denies difficulty falling asleep, staying asleep, waking from sleep. Denies knowledge of snoring. GASTROINTESTINAL: Denies any type of dysphagia to either liquids or solids. Denies nausea, vomiting, pyrosis, early satiety, abdominal pain, diarrhea, constipation, or changes in stool consistency or caliber. Denies coffee-ground emesis, hematemesis, hematochezia, or melanotic stools. GENITOURINARY: Denies frequency, urgency, nocturia, hematuria or incontinence (Storage/Irritative symptoms.) Low urinary stream, straining to void, urinary intermittency or hesitancy, splitting of the voiding stream, terminal dribbling. ENDOCRINOLOGIC: Denies polyuria, polydipsia, polyphagia or heat/cold intolerances. HEMATOLOGIC: Denies thrombophilia/previous clots, or coagulopathy/bleeding disorders. ONCOLOGIC: Denies personal history of malignancy. DERMATOLOGIC: Denies rashes or pruritus. PSYCHIATRIC: Denies any suicidal or homicidal ideation. Denies hallucinations. PHYSICAL EXAM GENERAL APPEARANCE: The patient is awake, alert, and oriented, in no acute cardiopulmonary distress. NEUROLOGICAL: Cranial nerves II-XII grossly intact. Motor is 5/5 in bilateral upper and lower extremities proximal to distal. No sensory deficits. HEENT: Face is symmetric. Pupils are equal and reactive. Extraocular movements are intact. NECK: Supple. No JVD. No thyromegaly. No submental, submandibular, pre- /postauricular, occipital or supraclavicular lymphadenopathy. CHEST: Normal chest expansion. No Telemetry. LUNGS: Absence of any rales, rhonchi or any wheezing. CARDIOVASCULAR: Regular. S1 and S2 normal. No appreciable rubs, murmurs or gallops. ABDOMEN: Soft, nontender, and nondistended. There is no rebound, voluntary guarding, or rigidity. : Deferred. No Swayer. EXTREMITIES: Non-edematous and not cyanotic. No clubbing. Good capillary refill. SKIN: No skin breakdown. Vital Signs (last 8hr) Date Time Temp Pulse Resp B/P (MAP) Pulse Ox O2 Delivery O2 Flow Rate FiO2 06/20/25 16:00 98.1 72 17 154/72 99 Room Air 06/20/25 12:00 98.1 71 20 149/87 100 Room Air 06/20/25 11:53 85 18 LABS: Laboratory: Test 06/20/25 16:28 06/19/25 04:11 Range/Units Whole Blood Glucose 106 70-110 MG/DL Bedside Glucose Comment Notified Nurse White Blood Count 11.5 #H 4.8-10.8 K/uL Red Blood Count 3.76 L 4.00-5.50 MIL/uL Hemoglobin 11.7 L 12.0-16.0 g/dL Hematocrit 36.4 36-48 % Mean Corpuscular Volume 96.8 79-99 fL Mean Corpuscular Hemoglobin 31.1 27.0-33.0 pg Mean Corpuscular Hemoglobin Concent 32.1 32.0-36.0 g/dL Red Cell Distribution Width 13.6 11.0-15.5 % Platelet Count 171 130-400 K/uL Mean Platelet Volume 11.2 H 7.5-10.5 fL Immature Granulocyte % (Auto) 0.4 0-1 % Neutrophils (%) (Auto) 67.6 40.0-77.0 % Lymphocytes (%) (Auto) 22.8 21.0-51.0 % Monocytes (%) (Auto) 8.7 3.0-13.0 % Eosinophils (%) (Auto) 0.3 0.0-8.0 % Basophils (%) (Auto) 0.2 0.0-5.0 % Neutrophils # (Auto) 7.8 H 1.8-7.7 K/uL Lymphocytes # (Auto) 2.6 1.0-4.8 K/uL Monocytes # (Auto) 1.0 0.1-1.0 K/uL Eosinophils # (Auto) 0.03 0.00-0.70 K/uL Basophils # (Auto) 0.02 0.00-0.20 K/uL Absolute Immature Granulocyte (auto 0.05 0-1 K/uL Nucleated Red Blood Cells 0.0 0.0-0.19 % Sodium Level 140 136-145 mmol/L Potassium Level 3.8 3.5-5.1 mmol/L Chloride Level 105 101-111 mmol/L Carbon Dioxide Level 25 21-32 mmol/L Blood Urea Nitrogen 28 H 7-18 mg/dL Creatinine 0.9 0.5-1.0 mg/dL Glomerular Filtration Rate Calc 73 >90 mL/min Random Glucose 113 H 70-105 mg/dL Total Calcium 8.6 8.5-10.1 mg/dL Magnesium Level 1.90 1.80-2.40 mg/dL Total Bilirubin 0.5 0.2-1.0 mg/dL Aspartate Amino Transf (AST/SGOT) 22 10-37 U/L Alanine Aminotransferase (ALT/SGPT) 34 12-78 U/L Alkaline Phosphatase 70 50-136 U/L Total Protein 6.1 6.0-8.3 g/dL Albumin 2.9 L 3.5-5.0 g/dL Current Medications Medications (Trade) Dose Ordered Sig/Tone Route PRN Reason Start Time Stop Time Status Last Admin Dose Admin Acetaminophen (TYLenol 325MG TAB) 650 mg Q6H PRN PO TEMPERATURE GREATER THAN 101.5 06/18/25 00:30 07/18/25 00:29 06/18/25 21:09 650 MG Acetaminophen/ Hydrocodone Bitart (NORco 5/325MG) 1 tab Q6H PRN PO MODERATE PAIN (4-6) 06/19/25 19:30 06/24/25 19:29 Albuterol Sulfate (Proventil 0.083% 2.5mg/3ml) 2.5 mg [id number] IH 06/18/25 06:00 07/18/25 05:59 06/20/25 11:53 2.5 MG Aspirin (Aspirin 81mg Ec Tab) 81 mg DAILY PO 06/18/25 09:00 07/18/25 08:59 06/20/25 09:30 81 MG Atorvastatin Calcium (LIPItor 40MG) 40 mg HS PO 06/18/25 21:00 07/18/25 20:59 06/19/25 20:51 40 MG Enoxaparin Sodium (Lovenox) 40 mg DAILY SQ 06/18/25 09:00 07/18/25 08:59 06/20/25 09:31 40 MG Ergocalciferol (Drisdol) 1,250 unit QSU PO 06/22/25 09:00 07/22/25 08:59 Famotidine (Pepcid 20mg Tab) 20 mg DAILY PO 06/18/25 09:00 07/18/25 08:59 06/20/25 09:30 20 MG Hydralazine HCl (APRESOLine 20MG INJ) 10 mg Q6H PRN IV For:SBP above 160;DBP above 90 06/18/25 00:30 07/18/25 00:29 Insulin Human Regular (humuLIN R 100 UNIT/ML 3ML) INSULIN SLIDING SCAL... ACHS SQ 06/18/25 07:30 07/18/25 07:29 Lactulose (Constulose 20gm/ 30ml Udcup) 20 gm BID PRN PO CONSTIPATION 06/18/25 00:30 07/18/25 00:29 Levothyroxine Sodium (SYNTHroid 50MCG TAB) 50 mcg SYN PO 06/20/25 06:30 07/20/25 06:29 06/20/25 06:28 50 MCG Magnesium Sulfate 50 ml @ 0 mls/hr PROTOCOL IV 06/19/25 21:00 07/19/25 20:59 Metoprolol Tartrate (loprESSOR) 100 mg DAILY PO 06/20/25 09:00 07/20/25 08:59 06/20/25 09:30 100 MG Morphine Sulfate (morPHINE 2MG SYG) 2 mg Q4H PRN IVP SEVERE PAIN (7-10) 06/18/25 00:30 06/25/25 00:29 06/18/25 20:56 2 MG Nitroglycerin (Nitroglycerin 1gm Oint) 0.5 inch Q8H TD 06/18/25 00:30 06/20/25 10:07 DC 06/20/25 00:27 0.5 INCH Ondansetron HCl (zoFRAN 4MG INJ) 4 mg Q6H PRN IV NAUSEA/VOMITING 06/18/25 00:30 07/18/25 00:29 Potassium Chloride (K-Dur/Klor-Con 20meq) 40 meq ONCE PO 06/19/25 21:00 06/19/25 23:59 DC 06/19/25 20:51 40 MEQ DIAGNOSTICS / RADIOLOGY: [ ] ASSESSMENT: [ Acute Chest pain, ruled out POA Uncontrolled Hypertension GERD versus reflux Asthma Hyperlipidemia Uncontrolled Diabetes mellitius type2 Hypothyroidism ] PLAN: [ Patient was seen by nurse practitioner from GI and at this moment they recommending EGD tomorrow morning. If negative patient is cleared to be discharged home. Anticipated discharge [id number] hours. We will continue to monitor patient in the meantime. A.m. labs. ATTESTATION BY PHYSICIAN I have seen and examined the patient. I reviewed the documentation, medical decision making, and treatment plan as noted by the mid-level provider above. I agree with the findings and plan of care. Yuri Skaggs IV, MD, KATARZYNA B EFFICIENCY ANALYST Jun 20, 2025 17:25
[2025-06-21] VITALS (22 sets, daily range): BP systolic 106–148; BP diastolic 54–80; PULSE 77–98; RESP 15–18; TEMP 97.1–98.3; O2SAT 96–98
[2025-06-21 03:47] LABS: IMMATURE GRANULOCYTE ABSOLUTE 0.01 K/uL (0-1); NUCLEATED RED BLOOD CELLS 0.0 % (0.0-0.19); PLATELET COUNT (AUTO) 181 K/uL (130-400); RED BLOOD CELL COUNT(AUTO) 3.81 MIL/uL (4.00-5.50); RED CELL DISTRIBUTION WIDTH 13.7 % (11.0-15.5); WHITE BLOOD COUNT (AUTO) 6.7 K/uL (4.8-10.8)
[2025-06-21 04:01] LABS: ASPARTATE AMINOTRANSFERASE 20.0 U/L (10-37); CREATININE 0.6 mg/dL (0.5-1.0); GLOMERULAR FILTR. RATE CALC 102.0 mL/min (>90); GLUCOSE,RANDOM 93.0 mg/dL (70-105); SODIUM SERUM 140.0 mmol/L (136-145); TOTAL PROTEIN, SERUM 6.2 g/dL (6.0-8.3); UREA NITROGEN, BLOOD 10.0 mg/dL (7-18)
[2025-06-21 08:22] LABS: INR 1.03 (0.85-1.15)
[2025-06-21] MEDS ORDERED: ALBUTEROL INHALER 90MCG/INH IH ONE (09:33)
[2025-06-21] MEDS ORDERED: PANT40TA55 PO (10:06)
[2025-06-21] MEDS ORDERED: FAMO20TA8 PO (10:06)
[2025-06-21] MEDS ORDERED: AEC81 PO (10:06)
[2025-06-21] MEDS ORDERED: LIDOCAINE PF 100MG/5ML (2%) SYRINGE 5ML ONE (10:06)
[2025-06-21] MEDS ORDERED: ATOR40TA69 PO (10:06)
--- NOTE | 2025-06-21 10:16 | DS ---
Discharge Summary Hospital Course Summary: DATE OF ADMISSION:[06/17/25] DATE OF DISCHARGE:[06/21/25] DISPOSITION:[Home] CONDITION:[Medically stable] CONSULTANTS: GI, cardio empty [] FOLLOW UP APPOINTMENTS:[PCP 2 to 3 days. 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 NEW MEDICATIONS:[aspirin 81 mg p.o. daily, atorvastatin 20 mg p.o. famotidine 20 mg p.o. daily. Pantoprazole 40 mq p.o. daily] EMERGENCY INSTRUCTIONS: The patient was instructed to present to the nearest Emergency departmentr or call 911 once their symptoms will return or worsen Insurance Case Manager(s): Patient is 59 years old female who department chief complaint of chest pain. Troponins negative times four. Chest x-ray no acute cardiopulmonary pathology is evident. Chest CT no evidence of pulmonary embolism. 2D echo EF 60 65% left ventricular diastolic function is normal. WBC 6.7 urinalysis negative. Chest pain/cardiac etiology was ruled out. In the meantime patient stated when she was eating that she has a middle pain that radiates throat. She also was complaining of burning sensation in her throat as well. We consulted GI for possible gastritis/GERD reflux. Patient as scheduled for EGD today 06/13/2025. Once negative and cleared by GI patient can go home. Follow up with the 2 to 3 days. Follow up with the GI within two weeks. Procedure(s): REVIEW OF SYSTEMS CONSTITUTIONAL: Denies fevers, chills, or night sweats. No unintentional weight loss reported. NEUROLOGICAL: Denies headache, amaurosis fugax, motor weakness, sensory deficit, vertigo/spinning sensation, gait abnormalities, or tremors. ENT: No hearing loss, otalgia, otorrhea, rhinitis, rhinorrhea, hoarseness, or sore throat. CARDIOVASCULAR: Denies any exertional angina, dyspnea on exertion, orthopnea, paroxysmal nocturnal dyspnea, palpitations, life-threatening arrhythmias, claudication. PULMONARY: Denies any shortness of breath, cough, phlegm/sputum, hemoptysis, pleuritic chest pain. SLEEP: Denies morning headaches, daytime somnolence or napping. Denies difficulty falling asleep, staying asleep, waking from sleep. Denies knowledge of snoring. GASTROINTESTINAL: Denies any type of dysphagia to either liquids or solids. Denies nausea, vomiting, pyrosis, early satiety, abdominal pain, diarrhea, con stipation, or changes in stool consistency or caliber. Denies coffee-ground emesis, hematemesis, hematochezia, or melanotic stools. GENITOURINARY: Denies frequency, urgency, nocturia, hematuria or incontinence (Storage/Irritative symptoms.) Low urinary stream, straining to void, urinary intermittency or hesitancy, splitting of the voiding stream, terminal dribbling. ENDOCRINOLOGIC: Denies polyuria, polydipsia, polyphagia or heat/cold intolerances. HEMATOLOGIC: Denies thrombophilia/previous clots, or coagulopathy/bleeding disorders. ONCOLOGIC: Denies personal history of malignancy. DERMATOLOGIC: Denies rashes or pruritus. PSYCHIATRIC: Denies any suicidal or homicidal ideation. Denies hallucinations. PHYSICAL EXAM GENERAL APPEARANCE: The patient is awake, alert, and oriented, in no acute card iopulmonary distress. NEUROLOGICAL: Cranial nerves II-XII grossly intact. Motor is 5/5 in bilateral upper and lower extremities proximal to distal. No sensory deficits. HEENT: Face is symmetric. Pupils are equal and reactive. Extraocular movements are intact. NECK: Supple. No JVD. No thyromegaly. No submental, submandibular, pre- /postauricular, occipital or supraclavicular lymphadenopathy. CHEST: Normal chest expansion. No Telemetry. LUNGS: Absence of any rales, rhonchi or any wheezing. CARDIOVASCULAR: Regular. S1 and S2 normal. No appreciable rubs, murmurs or gallops. ABDOMEN: Soft, nontender, and nondistended. There is no rebound, voluntary guarding, or rigidity. : Deferred. No [place]. EXTREMITIES: Non-edematous and not cyanotic. No clubbing. Good capillary refill. SKIN: No skin breakdown. Assessment/Plan: ASSESSMENT: [ Acute Chest pain, ruled out POA Uncontrolled Hypertension GERD versus reflux Asthma Hyperlipidemia Uncontrolled Diabetes mellitius type2 Hypothyroidism ] Home Medications: Reported Medications Ergocalciferol (Vitamin D2) (Vitamin D2) 1,250 Mcg (12262 Unit) Capsule, 1 CAP PO TWICE A WEEK for 28 Days, #4 CAP 0 Refills TAKE 2X A WEEK(MONDAY/MONDAY) 06/18/25 Metoprolol Succinate (Metoprolol Succinate) 100 Mg Tab.er.24h, 1 TAB PO DAILY for 30 Days, #30 TAB 0 Refills 06/18/25 Levothyroxine Sodium (Levothyroxine) 50 Mcg Capsule, 1 CAP PO DAILYBKFST for 30 Days, #30 CAP 0 Refills 06/18/25 Pioglitazone HCl (Pioglitazone HCl) 30 Mg Tablet, 1 TAB PO DAILY for 30 Days, #30 TAB 0 Refills 06/18/25 Discontinued Reported Medications Multivitamin (Multi Vitamin Daily) 1 Each Tablet, 1 EACH PO DAILY, TAB 11/20/17 Lisinopril/Hydrochlorothiazide (Lisinopril-Hctz 20-12.5 mg Tab) 1 Each Tablet, 1 EACH PO DAILY, TAB 11/20/17 Discontinued Scripts Omeprazole (Omeprazole) 40 Mg Capsule.dr, 1 CAP PO DAILY for 30 Days, #30 CAP 0 Refills Prov:AJAY JAIN NP 12/28/24 Prednisone (Prednisone) 20 Mg Tablet, 1 TAB PO AD for 6 Days, #14 TAB 0 Refills TAKE 1 TAB BY MOUTH THREE TIMES PER DAY X3 DAYS, THEN TAKE 1 TAB BY MOUTH TWICE A DAY X2 DAYS, THEN TAKE 1 TAB BY MOUTH ONCE A DAY X1 DAY. TAKE WITH FOOD Prov:AJAY JAIN NP 12/28/24 Ibuprofen (Ibuprofen 800 mg Tab) 800 Mg Tab, 800 MG PO Q8H PRN for fever or pain, #30 TAB 0 Refills Prov:AJAY JAIN NP 12/28/24 Cyclobenzaprine HCl (Cyclobenzaprine HCl) 10 Mg Tablet, 1 TAB PO TID for muscle spasms for 10 Days, #30 TAB 0 Refills Prov:AJAY JAIN NP 12/28/24 Cyclobenzaprine HCl (Cyclobenzaprine HCl) 10 Mg Tablet, 10 MG PO DAILYDINNER for 5 Days, #5 TAB Prov:BRENNAN RIVERA 05/09/24 Ketorolac Tromethamine (Ketorolac Tromethamine) 10 Mg Tablet, 10 MG PO BID for 5 Days, #10 TAB Prov:BRENNAN RIVERA 05/09/24 D-Methorphan Hb/P-Epd HCl/Bpm (Bromfed Dm Cough Syrup) 118 Ml Syrup, 7.5 ML PO TID for cough for 5 Days, #80 ML Prov:NYA CAMPBELL NP 08/29/21 Prednisone (Prednisone) 20 Mg Tablet, 1 TAB PO DAILY for Bronchitis for 6 Days, #6 TAB 0 Refills TAKE 1 TAB BY MOUTH THREE TIMES PER DAY X3 DAYS, THEN TAKE 1 TAB BY MOUTH TWICE A DAY X2 DAYS, THEN TAKE 1 TAB BY MOUTH ONCE A DAY X1 DAY. Prov:NYA CAMPBELL NP 08/29/21 Azithromycin (Zithromax) 250 Mg Tablet, 250 MG PO DAILY for Bronchitis for 5 Da ys, #6 TAB Prov:NYA CAMPBELL NP 08/29/21 Ondansetron (Ondansetron Odt) 4 Mg Tab.rapdis, 4 MG PO Q6HPRN, #20 TAB 0 Refills Prov:REBECA CHRISTIE MD 05/01/21 Albuterol Sulfate (Proair Hfa) 8.5 Gm Hfa.aer.ad, 2 PUFF IH Q4HPRN, #1 INHALER 0 Refills Prov:REBECA CHRISTIE MD 05/01/21 Benzonatate (Tessalon Perle) 100 Mg Capsule, 100 MG PO TIDP, #15 CAP 0 Refills Prov:REBECA CHRISTIE MD 05/01/21 Time spent arranging discharge: 31-60 minutes ATTESTATION BY PHYSICIAN I have seen and examined the patient. I reviewed the documentation, medical decision making, and treatment plan as noted by the mid-level provider above. I agree with the findings and plan of care. Yuri Skaggs IV, MD, KATARZYNA B EXEC. CREATIVE DIRECTOR Jun 21, 2025 10:15
[2025-06-21] MEDS: PoTASSium chloRIDE 20MEQ ER 20 MEQ ERTAB PO ONE (11:57)
[2025-06-22] MEDS ORDERED: ERGOCALCIFEROL (VITAMIN D2) 50,000 UNIT CAPSULE PO SCH (09:00)
== END 2025-06-21 16:10 | disposition home or self-care (01) | DRG 392 ==
LOC: EDH 17:05 → EDHIP 20:58 → 4DH 06-18 21:24
PROVIDERS: ADMIT Internal Medicine; ATTEND Internal Medicine
PROC: 0DB68ZX Excision of Stomach, Via Natural or Artificial Opening Endoscopic, Diagnostic (ICD-10-PCS; principal; 2025-06-21)
PROC: 0DB58ZX Excision of Esophagus, Via Natural or Artificial Opening Endoscopic, Diagnostic (ICD-10-PCS; 2025-06-21)
DX: K29.70 Gastritis, unspecified, without bleeding (principal); K21.9 Gastro-esophageal reflux disease without esophagitis; J45.909 Unspecified asthma, uncomplicated; I10 Essential (primary) hypertension; I25.10 Atherosclerotic heart disease of native coronary artery without angina pectoris; E03.9 Hypothyroidism, unspecified; E78.00 Pure hypercholesterolemia, unspecified; K22.89 Other specified disease of esophagus; K31.89 Other diseases of stomach and duodenum; E11.65 Type 2 diabetes mellitus with hyperglycemia; E66.01 Morbid (severe) obesity due to excess calories; L53.8 Other specified erythematous conditions; Z51.5 Encounter for palliative care; Z79.82 Long term (current) use of aspirin; Z79.899 Other long term (current) drug therapy; Z90.710 Acquired absence of both cervix and uterus
CPT/HCPCS: 36415; 43239; 71045; 71270; 80048; 80053; 81003; 82948; 83036; 83735; 84100; 84443; 84484; 85025; 85610; 85730; 93005; 93306; 93356; 94640; 94664; 96374; 96375; 99285; A4606; G0378; J1650; J2003; J2270; J2704; J2919; J3480; Q9967; A4215; A4221; A4222; A4223; A4620; J3490

== ENCOUNTER 2025-08-15 11:02 | Emergency (ER) | payer BC ==
[~2025-08-15] VITALS: Ht 152.4 cm; Wt 97.5 kg
[~2025-08-15 11:02] MED LIST changes: +AEC81 PO; -ALBU8.5H8 IH; +ATOR40TA69 PO; -AZIT250T PO; -BENZ-17 PO; -BROM118S48 PO; -CYCL-309 PO; +ERGO500093 PO; +FAMO20TA8 PO; -IBUP-2077 PO; -KETO10TA2 PO; +LEVO50CA5 PO; -LISI1TAB51 PO; +METO-409 PO; -MULT-1203 PO; -OMEP40CA21 PO; -ONDA-243 PO; +PANT40TA55 PO; +PIOG30TA70 PO; -PRED20TA3 PO
--- NOTE | 2025-08-15 11:20 | ERN ---
ED Note History of Present Illness Stated Complaint: PAIN TO THE RIGHT LEG Chief Complaint: Lower Extremity Pain/Injury Time Seen by MD: 11:04 Time Seen by Midlevel: 11:05 Dictation: 60-year-old female presents to the emergency department after having been referred by her physician for evaluation of the right lower leg due to the concern of having a blood clot. The patient states that she started with swelling of the right lower extremity 1 week ago. Currently, she denies having any chest pain or chest pressure. There is no report of any shortness of breath. However, she states that she was having some chest pressure yesterday. There is no reported having any known cardiac history. She denies having any known history of any blood loss. Upon initial evaluation, the presents in no acute distress. Allergies: Coded Allergies: No Known Drug Allergies (Unverified Allergy, Unknown, 11/20/17) Emergency Care [facility]AN[facility]TER: None Home Meds Active Scripts Pantoprazole Sodium (Protonix) 40 Mg Ectab, 1 TAB PO DAILY for 30 Days, #30 TAB 0 Refills Prov:MONIKA PINEDO [employer] TECHNICIAN 06/21/25 Famotidine (Famotidine) 20 Mg Tablet, 20 MG PO DAILY, #60 TAB Prov:MONIKA PINEDO [employer] EQUIPMENT TECHNICIAN 06/21/25 Atorvastatin Calcium (LIPITOR) 40 Mg Tablet, 40 MG PO HS, #60 TAB Prov:MONIKA PINEDO [employer] EQUIPMENT TECHNICIAN 06/21/25 Aspirin (ASPIRIN 81 MG ECTAB) 81 Mg Ectab, 81 MG PO DAILY, #60 TAB.EC Prov:MONIKA PINEDO [employer]ARM EQUIPMENT TECHNICIAN 06/21/25 Reported Medications Ergocalciferol (Vitamin D2) (Vitamin D2) 1,250 Mcg (15862 Unit) Capsule, 1 CAP PO TWICE A WEEK for 28 Days, #4 CAP 0 Refills TAKE 2X A WEEK(MONDAY/MONDAY) 06/18/25 Metoprolol Succinate (Metoprolol Succinate) 100 Mg Tab.er.24h, 1 TAB PO DAILY for 30 Days, #30 TAB 0 Refills 06/18/25 Levothyroxine Sodium (Levothyroxine) 50 Mcg Capsule, 1 CAP PO DAILYBKFST for 30 Days, #30 CAP 0 Refills 06/18/25 Pioglitazone HCl (Pioglitazone HCl) 30 Mg Tablet, 1 TAB PO DAILY for 30 Days, #30 TAB 0 Refills 06/18/25 Past Medical History Past Medical History: High Cholesterol, Hypertension, Hypothyroid Surgical History: Hysterectomy, Surgical History Other: LT FOOT SX Family History: Negative Social History: Lives with family History: Not Applicable RN Note Reviewed/Agreed w/PFSH: Yes Review of System Dictation Constitutional: Negative for fever,chills, and weight loss Eyes: Negative for injury, pain,redness, and discharge ENT: Negative for injury,pain or swelling Cardiovascular: Negative for chest pain, palpitations, and edema Respiratory: Negative for shortness of breath, cough, and wheezing, Abdomen/GI: Negative for abdominal pain, nausea, vomiting, diarrhea, and constipation Back: Negative for injury and pain : Negative for injury, bleeding and discharge MS/Extremity: Right lower extremity swelling Skin: Negative for rash, and discoloration Neuro: Negative for headache, weakness, numbness, tingling, and seizure Psych: Negative for suicide ideation, homicidal ideation, and hallucinations Initial Vital Sign VS Vital Signs Date Time Temp Pulse Resp B/P (MAP) Pulse Ox O2 Delivery O2 Flow Rate FiO2 08/15/25 11:03 97.3 63 18 179/77 100 Room Air 08/15/25 13:28 0 21 Physical Exam Dictation General: awake, alert, NAD Head/Face: Normocephalic, atraumatic Eyes: PERRL, EOMI ENT: Oral mucosa moist Neck: Trachea midline, supple Cardiovascular: RRR, 1+ edema right lower extremity Respiratory: Symmetrical, non-labored Abdomen: Soft, non-tender, non-distended, no guarding. Skin: Warm, dry, good turgor, no rash MS/Extremity: Pulses equal, no cyanosis, neurovascular intact, Neuro: COAx4, GCS 15, steady gait, Psych: Normal behavior, mood, and affect normal Results (Laboratory/Radiology) Laboratory/Radiology Laboratory Tests Test 08/15/25 11:31 White Blood Count 5.5 K/uL (4.8-10.8) Red Blood Count 4.14 MIL/uL (4.00-5.50) Hemoglobin 13.3 g/dL (12.0-16.0) Hematocrit 40.7 % (36-48) Mean Corpuscular Volume 98.3 fL (79-99) Mean Corpuscular Hemoglobin 32.1 pg (27.0-33.0) Mean Corpuscular Hemoglobin Concent 32.7 g/dL (32.0-36.0) Red Cell Distribution Width 12.8 % (11.0-15.5) Platelet Count 219 K/uL (130-400) Mean Platelet Volume 11.0 fL (7.5-10.5) H Immature Granulocyte % (Auto) 0.0 % (0-1) Neutrophils (%) (Auto) 47.9 % (40.0-77.0) Lymphocytes (%) (Auto) 38.4 % (21.0-51.0) Monocytes (%) (Auto) 10.1 % (3.0-13.0) Eosinophils (%) (Auto) 3.1 % (0.0-8.0) Basophils (%) (Auto) 0.5 % (0.0-5.0) Neutrophils # (Auto) 2.6 K/uL (1.8-7.7) Lymphocytes # (Auto) 2.1 K/uL (1.0-4.8) Monocytes # (Auto) 0.6 K/uL (0.1-1.0) Eosinophils # (Auto) 0.17 K/uL (0.00-0.70) Basophils # (Auto) 0.03 K/uL (0.00-0.20) Absolute Immature Granulocyte (auto 0.00 K/uL (0-1) Nucleated Red Blood Cells 0.0 % (0.0-0.19) Sodium Level 142 mmol/L (136-145) Potassium Level 3.7 mmol/L (3.5-5.1) Chloride Level 103 mmol/L (101-111) Carbon Dioxide Level 29 mmol/L (21-32) Blood Urea Nitrogen 12 mg/dL (7-18) Creatinine 0.5 mg/dL (0.5-1.0) Glomerular Filtration Rate Calc 106 mL/min (>90) Random Glucose 96 mg/dL (70-105) Total Calcium 8.9 mg/dL (8.5-10.1) Total Bilirubin 1.0 mg/dL (0.2-1.0) Aspartate Amino Transf (AST/SGOT) 24 U/L (10-37) Alanine Aminotransferase (ALT/SGPT) 22 U/L (12-78) Alkaline Phosphatase 86 U/L (50-136) Troponin I High Sensitivity 6 ng/L (4-50) Total Protein 7.4 g/dL (6.0-8.3) Albumin 3.7 g/dL (3.5-5.0) Labs Reviewed?: Yes X-RAY Comment: Chest x-ray one view with a normal-appearing cardiac silhouette. Ultrasound Comment: Ultrasound of the right lower extremity with a no identified DVT. ED Course ED Course Orders Procedure Category Date Status Time Troponin I High LAB 08/15/25 Complete Sensitivity 11:07 Cbc With Differential LAB 08/15/25 Complete 11:07 Comprehensive LAB 08/15/25 Complete Metabolic Panel 11:07 Chest 1vw RAD 08/15/25 Resulted 11:07 Us Venous Doppler US 08/15/25 Resulted Unilateral 11:07 Vital Signs Date Time Temp Pulse Resp B/P (MAP) Pulse Ox O2 Delivery O2 Flow Rate FiO2 08/15/25 13:28 97.5 64 18 158/68 97 Room Air* 0 21 08/15/25 11:03 97.3 63 18 179/77 100 Room Air Medical Decision Making MDM MDM: Differential diagnosis: DVT of the lower extremity, swelling of the right lower extremity, contusion of right lower extremity. Rationale: Tests considered and ordered secondary to shared decision making include: Previous outside records reviewed: Old ER visits. Risk of complication and/or morbidity or mortality of patient management: None Medications-Per medication reconciliation Need for hospitalization: Patient does not meet criteria for hospitalization. Need for emergency major/minor surgery: No There are no social concerns with this patient. Prescription drug management Prescriptions will include symptomatic care Patient's prior external medical records from other ER visits were reviewed by me as indicated. Prior testing and results from previous visits were reviewed. Prior tests were taken into account with medical decision making and resource utilization, independent historian/historians were used to obtain complete medical history. I independently interpreted the test that were performed, results were reviewed by me and considered findings on radiology if ordered. Medical management and examination interpretation discussions were had by me with other qualified healthcare professionals as indicated for the patient's care. DX & DISP Disposition: Discharge Departure Impression: Primary Impression: Swelling of right lower extremity Condition: Stable Referrals: SELF,REFERRAL (PCP) Time of Disposition: 12:57 ATTESTATION BY PHYSICIAN I PERFORMED THE SUBSTANTIVE PORTION OF THE VISIT. I HAVE REVIEWED AND PERSONALLY MADE AND APPROVED THE MANAGEMENT PLAN THAT IS DOCUMENTED IN THE NOTE BY MYSELF FOR THE A PP. PETER PAZ Aug 15, 2025 11:20 NIC LANGLEY MD Aug 18, 2025 07:41
[2025-08-15 11:41] LABS: IMMATURE GRANULOCYTE ABSOLUTE 0.00 K/uL (0-1); NUCLEATED RED BLOOD CELLS 0.0 % (0.0-0.19); PLATELET COUNT (AUTO) 219 K/uL (130-400); RED BLOOD CELL COUNT(AUTO) 4.14 MIL/uL (4.00-5.50); RED CELL DISTRIBUTION WIDTH 12.8 % (11.0-15.5); WHITE BLOOD COUNT (AUTO) 5.5 K/uL (4.8-10.8)
--- NOTE | 2025-08-15 11:42 | HMCIMG ---
EXAM: US for Deep Venous Thrombosis, right Lower Extremity. CLINICAL HISTORY: Leg Pain and Swelling TECHNIQUE: Real-time ultrasound scan of the veins of the right lower extremity with color Doppler flow, spectral waveform analysis and compression. COMPARISON: None provided. FINDINGS: DEEP VEINS: The common femoral, superficial femoral, and popliteal veins are echolucent and compressible. There is normal color Doppler flow throughout. The visualized calf veins appear patent. SOFT TISSUES: No popliteal fossa cyst or other abnormalities. IMPRESSION: No deep venous thrombosis evident on the right lower extremity examination. /Camila
[2025-08-15 12:17] LABS: CREATININE 0.5 mg/dL (0.5-1.0); GLOMERULAR FILTR. RATE CALC 106.0 mL/min (>90); GLUCOSE,RANDOM 96.0 mg/dL (70-105); SODIUM SERUM 142.0 mmol/L (136-145); UREA NITROGEN, BLOOD 12.0 mg/dL (7-18)
[2025-08-15 12:21] LABS: ASPARTATE AMINOTRANSFERASE 24.0 U/L (10-37); TOTAL PROTEIN, SERUM 7.4 g/dL (6.0-8.3)
--- NOTE | 2025-08-15 12:25 | HMCIMG ---
STUDY: X-RAY OF THE CHEST, 1 VIEW HISTORY: Pain. TECHNIQUE: A single frontal view of the chest is submitted for interpretation. COMPARISON: Chest radiograph, 1 view, dated 06/17 at 18:31 EDT. FINDINGS: Pulmonary ulloa: There are no pulmonary infiltrates or nodules, and symmetrical aeration is noted. Cardiac silhouette: Cardiac silhouette is within normal limits. Mediastinum and lashawn: There is no mediastinal mass or evidence of mediastinal widening, and the retrosternal space is well preserved with no opacities. Osseous structures: Limited evaluation of the ribcage and thoracic spine reveals no abnormality. Miscellaneous: There is no pneumothorax or pleural effusion, the costophrenic angles are clear bilaterally, and there is no free air seen under the diaphragms. IMPRESSION: * No acute cardiopulmonary abnormality identified. * Comparison with prior chest radiograph, 1 view, dated 06/17 at 18:31 EDT demonstrates no significant interval change. /[place]
[2025-08-15 13:28] VITALS: BP 158/68; PULSE 64; RESP 18; TEMP 97.6; O2SAT 97
== END 2025-08-15 13:29 | disposition home or self-care (01) ==
LOC: EDH 11:02
DX: R22.41 Localized swelling, mass and lump, right lower limb (principal); M79.604 Pain in right leg; E78.00 Pure hypercholesterolemia, unspecified; I10 Essential (primary) hypertension; E03.9 Hypothyroidism, unspecified; Z79.82 Long term (current) use of aspirin; Z79.84 Long term (current) use of oral hypoglycemic drugs; Z79.899 Other long term (current) drug therapy; Z90.710 Acquired absence of both cervix and uterus; Z98.890 Other specified postprocedural states
CPT/HCPCS: 36415; 71045; 80053; 84484; 85025; 93971; 99284